=== PATIENT | female | born 1965 | race Caucasian/White ===

== ENCOUNTER 2017-09-15 11:38 | Emergency (ER) | payer MEDICAID ==
[~2017-09-15] VITALS: Ht 172.7 cm; Wt 68.9 kg
[2017-09-15] MEDS ORDERED: UNOBMED (11:52)
[2017-09-15 11:55] VITALS: BP 103/56
--- NOTE | 2017-09-15 12:27 | Emergency Room Report ---
History of Present Illness General Chief Complaint: Dizziness Source: Patient (Krishan Danielle MD) Present Illness HPI Patient is a 52-year-old female who presented after increased dizziness. The patient gradual onset of symptoms over the past few days. Patient reports having history of alcohol abuse and states been drinking heavily for several weeks and stop drinking until this morning. The patient reports feeling the lightheaded. She denies any hematemesis or bloody stools. Patient reports having prior history of COPD as well as hepatitis C. The patient reports having one alcoholic drink this morning. (Krishan Danielle MD) Allergies: Coded Allergies: CODEINE (Verified Allergy, Unknown, 09/15/17) Patient History Now: No Reviewed Nursing Documentation: PMH: Agreed; PSxH: Agreed (Krishan Danielle MD) Nursing Documentation-PMH Hx COPD: Yes History Of Psychiatric Problem: Yes (Krishan Danielle MD) Review of Systems All Other Systems: negative except mentioned in HPI (Krishan Danielle MD) Physical Exam Vital Signs Date Time Temp Pulse Resp B/P (MAP) Pulse Ox O2 Delivery O2 Flow Rate FiO2 09/15/17 11:47 98.3 109 16 94/67 93 Room Air 98.2 Sp02 EP Interpretation: reviewed, normal General Appearance: normal inspection, well appearing, no apparent distress, alert, GCS 15 Head: atraumatic ENT: normal ENT inspection, hearing grossly normal, normal voice Neck: normal inspection, full range of motion, supple, no bony tend Respiratory: normal inspection, normal breath sounds, no respiratory distress, no retraction Cardiovascular #1: regular rate, rhythm, no edema Gastrointestinal: normal inspection, normal bowel sounds, non tender, soft, no guarding, no hernia Genitourinary: no CVA tenderness Musculoskeletal: normal inspection, back normal, normal range of motion Neurologic: normal inspection, alert, oriented x3, responsive, machine set up III-XII nml as tested, motor strength/tone normal, speech normal Psychiatric: normal inspection, judgement/insight normal, mood/affect normal Skin: normal inspection, normal color, no rash (Krishan Danielle MD) Medical Decision Making Diagnostic Impression: Primary Impression: Dizziness Additional Impressions: Hypokalemia Anemia ER Course Patient presented for dizziness. Differential diagnosis included but not limited to urinary tract infection, anemia, arrhythmia, abdominal aortic aneurysm, CVA, subarachnoid hemorrhage, benign positional vertigo.Because of complexity of patient's case laboratory testing and imaging studies were ordered.The patient started on IV fluids. (Krishan Danielle MD) ER Course Please for to the initial note for the history exam and presentation Patient's blood work reveals signs of anemia Potassium level was also low this was replaced Patient was provided with further hydration Going to discuss the findings in the follow-up with the patient Patient is verbally abusive After several minutes of attempting to talk to the patient, she continues to be verbally aggressive, unfortunately I was not able to have a full and final conversation with the patient Patient appeared to be complaining of ongoing dizziness for over the past several months Thus far given the blood work patient is stable for discharge, she was provided with multivitamin and also Michelle catheter with consideration of Wernikies disease At this time patient ambulate to the restroom without any deficit or focal weakness Consideration for CT imaging is made however as noted previously the patient was not cooperative with my exam or history and disposition for close outpatient follow-up Labs Test 09/15/17 13:25 09/15/17 13:45 Urine Color Yellow Urine Appearance Slightly cloudy Urine pH 5 (4.5-8.0) Urine Specific [place] 1.015 (1.005-1.035) Urine Protein 1+ (NEGATIVE) Urine Glucose (UA) Negative (NEGATIVE) Urine Ketones Negative (NEGATIVE) Urine Occult Blood 1+ (NEGATIVE) Urine Nitrite Positive (NEGATIVE) Urine Bilirubin Negative (NEGATIVE) Urine Urobilinogen 1 MG/DL (0.0-1.0) Urine Leukocyte Esterase 2+ (NEGATIVE) Urine RBC 2-4 /HPF (0 - 2) Urine WBC 15-20 /HPF (0 - 2) Urine Squamous Epithelial Cells Few /LPF (NONE/OCC) Urine Bacteria Moderate /HPF (NONE) Urine Opiates Screen Negative (NEGATIVE) Urine Barbiturates Screen Negative (NEGATIVE) Phencyclidine (PCP) Screen Negative (NEGATIVE) Urine Amphetamines Screen Negative (NEGATIVE) Urine Benzodiazepines Screen Negative (NEGATIVE) Urine Cocaine Screen Negative (NEGATIVE) Urine Marijuana (THC) Screen Negative (NEGATIVE) White Blood Count 8.9 K/UL (4.8-10.8) Red Blood Count 2.76 M/UL (4.20-5.40) Hemoglobin 9.4 G/DL (12.0-16.0) Hematocrit 27.5 % (37.0-47.0) Mean Corpuscular Volume 100 FL (80-99) Mean Corpuscular Hemoglobin 33.9 PG (27.0-31.0) Mean Corpuscular Hemoglobin Concent 34.1 G/DL (32.0-36.0) Red Cell Distribution Width 15.3 % (11.6-14.8) Platelet Count 429 K/UL (150-450) Mean Platelet Volume 5.7 FL (6.5-10.1) Neutrophils (%) (Auto) 50.1 % (45.0-75.0) Lymphocytes (%) (Auto) 41.2 % (20.0-45.0) Monocytes (%) (Auto) 6.8 % (1.0-10.0) Eosinophils (%) (Auto) 0.4 % (0.0-3.0) Basophils (%) (Auto) 1.5 % (0.0-2.0) Prothrombin Time 10.1 SEC (9.30-11.50) Prothromb Time International Ratio 1.0 (0.9-1.1) Activated Partial Thromboplast Time 25 SEC (23-33) Sodium Level 143 MMOL/L (136-145) Potassium Level 2.7 MMOL/L (3.5-5.1) Chloride Level 104 MMOL/L (98-107) Carbon Dioxide Level 28 MMOL/L (21-32) Anion Gap 10 mmol/L (5-15) Blood Urea Nitrogen 7 mg/dL (7-18) Creatinine 0.7 MG/DL (0.55-1.30) Estimat Glomerular Filtration Rate > 60 mL/min (>60) Glucose Level 106 MG/DL (74-106) Calcium Level 9.3 MG/DL (8.5-10.1) Total Bilirubin 0.2 MG/DL (0.2-1.0) Aspartate Amino Transf (AST/SGOT) 66 U/L (15-37) Alanine Aminotransferase (ALT/SGPT) 36 U/L (12-78) Alkaline Phosphatase 119 U/L (46-116) Troponin I 0.000 ng/mL (0.000-0.056) Total Protein 6.8 G/DL (6.4-8.2) Albumin 3.3 G/DL (3.4-5.0) Globulin 3.5 g/dL Albumin/Globulin Ratio 0.9 (1.0-2.7) Lipase 268 U/L (73-393) Thyroid Stimulating Hormone (TSH) 0.852 uiU/mL (0.358-3.740) Serum Alcohol < 3 mg/dL (Arslan Peacock DO) EKG Diagnostic Results Rate: normal Rhythm: NSR ST Segments: no acute changes (Arslan Peacock DO) Rhythm Strip Diag. Results EP Interpretation: yes Rate: 77 Rhythm: NSR, no PVC's, no ectopy (Arslan Peacock DO) Last Vital Signs Date Time Temp Pulse Resp B/P (MAP) Pulse Ox O2 Delivery O2 Flow Rate FiO2 09/15/17 11:55 95 18 103/56 97 Room Air 09/15/17 11:47 98.3 98.2 (Krishan Danielle MD) Status: improved (Arslan Peacock DO) Disposition: HOME, SELF-CARE - With refusal of further evaluation Condition: Improved Referrals: NON PHYSICIAN (PCP) Additional Instructions: Please follow-up with your primary physician in the next 2-3 days return sooner with any complaints or concerns, Krishan Danielle MD Sep 15, 2017 12:27 Arslan Peacock DO Sep 15, 2017 17:24
[2017-09-15] MEDS ORDERED: LR 1000ml 1,000 ML IV SCH (12:30)
[2017-09-15 13:40] LABS: APPEARANCE,URINE SLIGHTLY CLOUDY; BILIRUBIN, URINE NEGATIVE (NEGATIVE); GLUCOSE, URINE (UA) NEGATIVE (NEGATIVE); KETONES,URINE NEGATIVE (NEGATIVE); LEUKOCYTE ESTERASE ,URINE 2+ (NEGATIVE); NITRITE,URINE POSITIVE (NEGATIVE); PH,URINE 5 (4.5-8.0); PROTEIN,URINE 1+ (NEGATIVE); UROBILINOGEN,URINE 1 MG/DL (0.0-1.0)
[2017-09-15 13:51] LABS: COLOR,URINE YELLOW
[2017-09-15 13:53] LABS: BASOPHILS % (AUTO) 1.5 % (0.0-2.0); EOSINOPHILS % (AUTO) 0.4 % (0.0-3.0); HEMATOCRIT 27.5 % (37.0-47.0); HEMOGLOBIN 9.4 G/DL (12.0-16.0); LYMPHOCYTES % (AUTO) 41.2 % (20.0-45.0); MEAN CORPUSCULAR VOLUME 100 FL (80-99); MONOCYTES % (AUTO) 6.8 % (1.0-10.0); NEUTROPHILS % (AUTO) 50.1 % (45.0-75.0); PLATELET COUNT 429 K/UL (150-450); RED BLOOD COUNT 2.76 M/UL (4.20-5.40); RED CELL DISTRIBUTION WIDTH 15.3 % (11.6-14.8); WHITE BLOOD COUNT 8.9 K/UL (4.8-10.8)
[2017-09-15 14:17] LABS: ALANINE AMINOTRANSFERASE 36 U/L (12-78); ALBUMIN 3.3 G/DL (3.4-5.0); ALBUMIN/GLOBULIN RATIO 0.9 (1.0-2.7); ALKALINE PHOSPHATASE 119 U/L (46-116); ANION GAP 10 mmol/L (5-15); ASPARTATE AMINO TRANSFERASE 66 U/L (15-37); BILIRUBIN,TOTAL 0.2 MG/DL (0.2-1.0); BLOOD UREA NITROGEN 7 mg/dL (7-18); CALCIUM 9.3 MG/DL (8.5-10.1); CARBON DIOXIDE 28 MMOL/L (21-32); CHLORIDE 104 MMOL/L (98-107); CREATININE 0.7 MG/DL (0.55-1.30); SODIUM 143 MMOL/L (136-145)
[2017-09-15 14:18] LABS: POTASSIUM 2.7 MMOL/L (3.5-5.1)
[2017-09-15] MEDS ORDERED: cefTRIAXone 1 GM in NS 55 ML IVPB ONE (14:30)
[2017-09-15 15:25] VITALS: BP 104/62
[2017-09-15 17:06] VITALS: BP 104/62
--- NOTE | 2017-09-16 14:56 | Cardiology Report ---
APPROVED REPORT EKG Measurement Heart [id number] Normal sinus rhythm Normal ECG
== END 2017-09-15 17:07 | disposition home or self-care (01) ==
LOC: EMR 12:20
DX: R42 Dizziness and giddiness (principal); E87.6 Hypokalemia; D64.9 Anemia, unspecified; J44.9 Chronic obstructive pulmonary disease, unspecified
CPT/HCPCS: 36415; 80053; 80307; 80329; 81001; 83690; 84443; 84484; 85025; 85610; 85730; 87086; 87181; 93005; 96361; 96365; 99284; J0696; J8499

== ENCOUNTER 2018-02-26 11:11 | Emergency (ER) | payer MEDICAID ==
[~2018-02-26] VITALS: Ht 154.9 cm; Wt 63.5 kg
[~2018-02-26 11:11] MED LIST: UNOBMED
[2018-02-26 11:14] VITALS: BP 120/80
--- NOTE | 2018-02-26 14:20 | Emergency Room Report ---
History of Present Illness General Chief Complaint: Alcohol Intoxication Source: Patient, EMS Present Illness HPI Patient presents by paramedics for reports of alcohol abuse and intoxication I am trying to obtain the order detailer run to obtain further history of who contacted paramedics and how the patient was brought to the emergency room here the patient shows signs of alcohol intoxication Belligerent yelling at the staff cursing at the staff Denies any chest pain denies any vomiting or diarrhea patient is not aware of why she was brought to the hospital Allergies: Coded Allergies: CODEINE (Verified Allergy, Unknown, 09/15/17) Patient History Limited by: medical condition Past Medical History: see triage record Pertinent Family History: unable to obtain Reviewed Nursing Documentation: PMH: Agreed; PSxH: Agreed Nursing Documentation-PMH Hx COPD: Yes Review of Systems All Other Systems: limited - Other than the ones mentioned in the history of present illness all others are reviewed however they do stay limited due to the patient's mental status Physical Exam Vital Signs Date Time Temp Pulse Resp B/P (MAP) Pulse Ox O2 Delivery O2 Flow Rate FiO2 02/26/18 11:06 98.2 88 120/80 98 02/26/18 11:14 22 Sp02 EP Interpretation: reviewed, normal General Appearance: no apparent distress Head: normocephalic, atraumatic Eyes: bilateral eye PERRL, bilateral eye EOMI ENT: normal pharynx, no angioedema Neck: supple Respiratory: lungs clear, normal breath sounds, no retraction, no accessory muscle use Cardiovascular #1: regular rate, rhythm Gastrointestinal: non tender, soft Musculoskeletal: normal inspection Neurologic: alert, responsive Psychiatric: other - Appears agitated and screaming at the staff Skin: normal color, no rash Lymphatic: no adenopathy Medical Decision Making Diagnostic Impression: Primary Impression: Acute alcoholic intoxication ER Course Upon arrival patient also admits to heavy alcohol intake Denies any vomiting or diarrhea denies any homicidal or suicidal thoughts Patient is allowed to rest there is no Findings with focal deficit and further imaging was not obtained patient will require repeat evaluation Discussion further after sobering Last Vital Signs Date Time Temp Pulse Resp B/P (MAP) Pulse Ox O2 Delivery O2 Flow Rate FiO2 02/26/18 11:14 98.2 88 22 120/80 98 Status: improved Condition: Stable Signed Out To: Oncoming physician Referrals: NOT CHOSEN IPA/,REFERRING (PCP) Arslan Peacock DO Feb 26, 2018 14:20
[2018-02-26 15:58] VITALS: BP 123/76
[2018-02-26 16:15] VITALS: BP 123/76
== END 2018-02-26 16:24 | disposition home or self-care (01) ==
LOC: EDBD 11:11 → EMR 12:00
DX: F10.129 Alcohol abuse with intoxication, unspecified (principal); J44.9 Chronic obstructive pulmonary disease, unspecified; Z88.5 Allergy status to narcotic agent
CPT/HCPCS: 99282

== ENCOUNTER 2019-02-22 09:37 | Inpatient (IN) | payer MEDICAID ==
[~2019-02-22] VITALS: Ht 172.7 cm; Wt 64.4 kg
--- NOTE | 2019-02-22 09:38 | NUR ---
ED Nurse Note: PT WAS BROUGHT IN BY AMBULANCE FROM HOME DUE TO RESPIRATORY DISTRESS AND LFU LIKE SYMPTOMS. ALBUTEROL 5MG WAS GIVEN BY EMS AND PT DID NOT IMPROVE. CPAP THEN PLACED BY EMS. AAO X4, FOLLOWS COMMANDS WITH SOB AT REST AND DIMINISHED LUNG SOUNDS UPON INSPIRATION. NOTED INCREASED BREATHING EFFORT AND UNABLE TO LAY DOWN.
--- NOTE | 2019-02-22 09:40 | NUR ---
ED Nurse Note: RT STACY AT THE BED SIDE AND BIPAP ORDERED BY DR SHAFER.
[2019-02-22] MEDS ORDERED: Ipratropium 0.02% Inh Soln 2.5ml UD ONE ×2 (09:41→09:42)
[2019-02-22] MEDS ORDERED: Albuterol ud Inhalation ONE ×2 (09:41→09:42)
[2019-02-22 09:42] VITALS: BP 136/73
[2019-02-22] MEDS ORDERED: IBUPROFEN400 MG ORAL (09:44)
[2019-02-22] MEDS ORDERED: SERTRALINE HCL25 MG ORAL (09:44)
[2019-02-22] MEDS ORDERED: GABAPENTIN100 MG ORAL (09:45)
[2019-02-22] MEDS: Ipratropium 0.02% Inh Soln 2.5ml UD HHN SCH ×3 (09:53→09:55)
[2019-02-22] MEDS: Albuterol ud Inhalation HHN SCH ×2 (09:53→09:54)
[2019-02-22] MEDS ORDERED: Solu-MEDROL 125mg Inj IVP ONE (10:00)
[2019-02-22 10:19] LABS: HEMATOCRIT 34.2 % (37.0-47.0); HEMOGLOBIN 11.5 G/DL (12.0-16.0); MEAN CORPUSCULAR VOLUME 108 FL (80-99); PLATELET COUNT 74 K/UL (150-450); RED BLOOD COUNT 3.17 M/UL (4.20-5.40); RED CELL DISTRIBUTION WIDTH 13.6 % (11.6-14.8); WHITE BLOOD COUNT 11.5 K/UL (4.8-10.8)
[2019-02-22 10:29] LABS: ANION GAP 22 mmol/L (5-15); BLOOD UREA NITROGEN 13 mg/dL (7-18); CALCIUM 8.5 MG/DL (8.5-10.1); CARBON DIOXIDE 18 MMOL/L (21-32); CHLORIDE 97 MMOL/L (98-107); CREATININE 0.6 MG/DL (0.55-1.30); POTASSIUM 3.4 MMOL/L (3.5-5.1); SODIUM 137 MMOL/L (136-145)
[2019-02-22 10:41] LABS: ALANINE AMINOTRANSFERASE 27 U/L (12-78); ALBUMIN 3.2 G/DL (3.4-5.0); ALBUMIN/GLOBULIN RATIO 0.7 (1.0-2.7); ALKALINE PHOSPHATASE 91 U/L (46-116); ASPARTATE AMINO TRANSFERASE 48 U/L (15-37); BILIRUBIN,TOTAL 0.8 MG/DL (0.2-1.0)
--- NOTE | 2019-02-22 11:01 | NUR ---
ED Nurse Note: RT KUMAR AT THE BED SIDE FOR ABG DRAW.
--- NOTE | 2019-02-22 11:02 | NUR ---
ED Nurse Note: DR SHAFER NOTIFIED OF BS 62.
[2019-02-22 11:51] VITALS: BP 144/87
--- NOTE | 2019-02-22 11:56 | NUR ---
ED Nurse Note: COLLECTED URINE THEN SENT.
[2019-02-22 12:03] LABS: APPEARANCE,URINE CLEAR; BILIRUBIN, URINE NEGATIVE (NEGATIVE); COLOR,URINE PALE YELLOW; GLUCOSE, URINE (UA) NEGATIVE (NEGATIVE); KETONES,URINE 4+ (NEGATIVE); LEUKOCYTE ESTERASE ,URINE 3+ (NEGATIVE); NITRITE,URINE NEGATIVE (NEGATIVE); PH,URINE 5 (4.5-8.0); PROTEIN,URINE 2+ (NEGATIVE); UROBILINOGEN,URINE NORMAL MG/DL (0.0-1.0)
--- NOTE | 2019-02-22 12:06 | Diagnostic Imaging Report ---
Indication: Cough Technique: One view of the chest Comparison: none Findings: Lungs and pleural spaces are clear. Heart size is normal. Impression: No acute process
--- NOTE | 2019-02-22 12:15 | NUR ---
ED Nurse Note: DR SHAFER ORDERED TO DISCONTINUE BIPAP AND ASSESS IF PT CAN TOLERATE NASAL CANNULA.
--- NOTE | 2019-02-22 12:28 | Emergency Room Report ---
History of Present Illness General Chief Complaint: Dyspnea/Respdistress Source: Patient Present Illness HPI Patient presents to the emergency department today with acute onset respiratory distress. Patient has a history of COPD. Patient states that she developed flulike symptoms for last few days and then today developed acute onset of cough congestion shortness of breath. EMS was contacted and patient was brought here for further evaluation. No other complaints are noted per symptoms noted to be severe. No other modifying factors. No other associated signs and symptoms. No other complaints were noted. Allergies: Coded Allergies: CODEINE (Verified Allergy, Unknown, 09/15/17) Patient History Past Medical History: COPD, other - Substance abuse Social History: Reports: smoking; Denies: alcohol use, drug use Last Menstrual Period: na Reviewed Nursing Documentation: PMH: Agreed; PSxH: Agreed Nursing Documentation-PMH Past Medical History: No History, Except For Hx COPD: Yes History Of Psychiatric Problem: Yes - substance abuse Review of Systems All Other Systems: negative except mentioned in HPI Physical Exam Vital Signs Date Time Temp Pulse Resp B/P (MAP) Pulse Ox O2 Delivery O2 Flow Rate FiO2 02/22/19 09:28 99.0 128 24 139/66 (90) 97 Bi-pap 02/22/19 09:37 40 40 Sp02 EP Interpretation: reviewed, normal General Appearance: alert, severe distress Head: atraumatic Eyes: bilateral eye normal inspection ENT: normal ENT inspection, hearing grossly normal, normal voice Neck: normal inspection, full range of motion, supple, no bony tend Respiratory: respiratory distress, decreased breath sounds, accessory muscle use, wheezing, expiration, inspiration Cardiovascular #1: no edema, tachycardia Gastrointestinal: normal inspection, normal bowel sounds, non tender, soft, no guarding, no hernia Genitourinary: no CVA tenderness Musculoskeletal: normal inspection, back normal, normal range of motion Neurologic: alert, responsive, speech normal, normal inspection Psychiatric: normal inspection, judgement/insight normal, anxious Skin: no rash Procedures Critical Care Time Critical Care Time Patient had a critical medical condition which untreated could potentially result in life or limb threatening injury. Total critical care time excluding procedures was approximately 45 minutes. Medical Decision Making Diagnostic Impression: Primary Impression: Respiratory distress Additional Impressions: Hypokalemia UTI (urinary tract infection) ER Course Patient presents emergency department today complaining of shortness of breath. Differential diagnoses include acute pneumonia, CHF, acute coronary syndrome, pneumothorax, asthma, COPD flare, just to name a few. Given the severity of the patient's presentation I felt this is a highly complex patient. This patient required extensive workup. Because patient presented in severe respiratory distress this is to be critical patient who required my full and complete attention. BiPAP was initiated. Patient was given albuterol Atrovent x3 in line. Patient was given Solu- Medrol. Patient was reevaluated to continue be short of breath. Therefore patient was started on magnesium. Patient has evidence UTI and given COPD will start patient on Rocephin as well. Blood cultures was obtained. Because of severity patient presentation was felt the patient was unstable for transfer. This was discussed with [facility] who approved the admission. Case discussed with Dr. Arslan Salinas. Patient will be admitted to our stepdown unit here for further evaluation. Labs Test 02/22/19 10:00 02/22/19 10:50 02/22/19 11:50 White Blood Count 11.5 K/UL (4.8-10.8) Red Blood Count 3.17 M/UL (4.20-5.40) Hemoglobin 11.5 G/DL (12.0-16.0) Hematocrit 34.2 % (37.0-47.0) Mean Corpuscular Volume 108 FL (80-99) Mean Corpuscular Hemoglobin 36.2 PG (27.0-31.0) Mean Corpuscular Hemoglobin Concent 33.6 G/DL (32.0-36.0) Red Cell Distribution Width 13.6 % (11.6-14.8) Platelet Count 74 K/UL (150-450) Mean Platelet Volume 5.4 FL (6.5-10.1) Neutrophils (%) (Auto) % (45.0-75.0) Lymphocytes (%) (Auto) % (20.0-45.0) Monocytes (%) (Auto) % (1.0-10.0) Eosinophils (%) (Auto) % (0.0-3.0) Basophils (%) (Auto) % (0.0-2.0) Differential Total Cells Counted 100 Neutrophils % (Manual) 83 % (45-75) Lymphocytes % (Manual) 5 % (20-45) Monocytes % (Manual) 11 % (1-10) Eosinophils % (Manual) 1 % (0-3) Basophils % (Manual) 0 % (0-2) Band Neutrophils 0 % (0-8) Platelet Estimate Decreased Platelet Morphology Normal Macrocytosis 1+ Sodium Level 137 MMOL/L (136-145) Potassium Level 3.4 MMOL/L (3.5-5.1) Chloride Level 97 MMOL/L (98-107) Carbon Dioxide Level 18 MMOL/L (21-32) Anion Gap 22 mmol/L (5-15) Blood Urea Nitrogen 13 mg/dL (7-18) Creatinine 0.6 MG/DL (0.55-1.30) Estimat Glomerular Filtration Rate > 60 mL/min (>60) Glucose Level 62 MG/DL (74-106) Calcium Level 8.5 MG/DL (8.5-10.1) Total Bilirubin 0.8 MG/DL (0.2-1.0) Aspartate Amino Transf (AST/SGOT) 48 U/L (15-37) Alanine Aminotransferase (ALT/SGPT) 27 U/L (12-78) Alkaline Phosphatase 91 U/L (46-116) Troponin I 0.000 ng/mL (0.000-0.056) Pro-B-Type Natriuretic Peptide 1247 pg/mL (0-125) Total Protein 7.5 G/DL (6.4-8.2) Albumin 3.2 G/DL (3.4-5.0) Globulin 4.3 g/dL Albumin/Globulin Ratio 0.7 (1.0-2.7) Arterial Blood pH 7.372 (7.350-7.450) Arterial Blood Partial Pressure CO2 30.0 mmHg (35.0-45.0) Arterial Blood Partial Pressure O2 187.6 mmHg (75.0-100.0) Arterial Blood HCO3 17.0 mmol/L (22.0-26.0) Arterial Blood Oxygen Saturation 99.1 % (95-100) Arterial Blood Base Excess -7.0 (-2-2) Akshat Test Positive Urine Color Pale yellow Urine Appearance Clear Urine pH 5 (4.5-8.0) Urine Specific [place] 1.015 (1.005-1.035) Urine Protein 2+ (NEGATIVE) Urine Glucose (UA) Negative (NEGATIVE) Urine Ketones 4+ (NEGATIVE) Urine Blood 5+ (NEGATIVE) Urine Nitrite Negative (NEGATIVE) Urine Bilirubin Negative (NEGATIVE) Urine Urobilinogen Normal MG/DL (0.0-1.0) Urine Leukocyte Esterase 3+ (NEGATIVE) Urine RBC 10-15 /HPF (0 - 2) Urine WBC 10-15 /HPF (0 - 2) Urine Squamous Epithelial Cells Few /LPF (NONE/OCC) Urine Bacteria Few /HPF (NONE) EKG Diagnostic Results Rate: tachycardiac Rhythm: NSR ST Segments: no acute changes Rhythm Strip Diag. Results EP Interpretation: yes Rate: 133 Rhythm: no PVC's, no ectopy, other - Sinus tachycardia Chest X-Ray Diagnostic Results Chest X-Ray Diagnostic Results : Chest X-Ray Ordered: Yes # of Views/Limited/Complete: 1 View Indication: Shortness of Breath EP Interpretation: Yes Interpretation: no consolidation, no effusion, no pneumothorax, no acute cardiopulmonary disease Impression: No acute disease Electronically Signed by: Electronically signed by Donnell Lay MD Last Vital Signs Date Time Temp Pulse Resp B/P (MAP) Pulse Ox O2 Delivery O2 Flow Rate FiO2 02/22/19 11:51 99.0 106 20 144/87 100 Bi-pap 40 Status: improved Disposition: ADMITTED INPATIENT Condition: Serious Referrals: NON PHYSICIAN (PCP) Donnell Lay MD Feb 22, 2019 12:28
[2019-02-22] MEDS ORDERED: cefTRIAXone 1 GM in NS 55 ML IVPB ONE (12:30)
[2019-02-22 12:58] VITALS: BP 145/93
--- NOTE | 2019-02-22 12:59 | NUR ---
ED Nurse Note: REPORT GIVEN TO SOLANGE HERNANDES OF [facility].
--- NOTE | 2019-02-22 14:03 | NUR ---
ED Nurse Note: PT TRANSFERRED TO [facility] WITH ALL HER BELONGINGS WITH HER. PT ON PORTABLE CARDIAC MONITORWITH OXYGEN AR 4LPM AND STABLE.
[2019-02-22 15:00] VITALS: BP 161/90
--- NOTE | 2019-02-22 15:00 | NUR ---
NURSE NOTES: received pt from ER with DX respiratory distress, awake, alert, oriented, vital signs stable, o2 4l via nasal canula, tolerate well, skin warm and dry to touch, intact, ambulatory, SR/ST on monitor, bed in low position, call light within reach.
[2019-02-22] MEDS: Albuterol/Ipratropium 3ml neb HHN SCH ×3 (15:45→23:00)
[2019-02-22 16:00] VITALS: BP 132/83
--- NOTE | 2019-02-22 16:22 | Diagnostic Imaging Report ---
Indication: Abnormal liver function tests. Leukocytosis, history of hepatitis C Technique: Seo-scale and duplex images of the upper abdomen were obtained Comparison: none Findings: Gallbladder is unremarkable, without stones, wall thickening, nor pericholecystic fluid. Sonographic Landin's sign is negative. Common bile duct measures 4 mm in diameter. No intrahepatic biliary ductal dilatation. Liver demonstrates increased echogenicity. It is enlarged. No focal abnormality. No surface nodularity Portal vein and hepatic veins are patent. Pancreas is unremarkable. Spleen is unremarkable. Left kidney measures 11.2 cm in length. Right kidney measures 12.1 cm length. Both kidneys demonstrate normal echogenicity. Centimeters mild fullness of the renal collecting systems but no carlos eduardo hydronephrosis. No focal abnormality . Non-aneurysmal abdominal aorta . Bladder is unremarkable Impression: Liver demonstrates diffusely increased echogenicity, consistent with diffuse hepatocellular disease, most likely fatty change. Hepatomegaly Negative gallstones or dilated bile ducts
[2019-02-22 16:25] LABS: INR 0.9 (0.9-1.1)
[2019-02-22 17:03] LABS: % IRON SATURATION 12 % (15-50); IRON 29 ug/dL (50-175); TOTAL IRON BINDING CAPACITY 241 ug/dL (250-450)
[2019-02-22 17:16] LABS: FERRITIN 279 NG/ML (8-388)
--- NOTE | 2019-02-22 18:30 | NUR ---
NURSE NOTES: spoke with dr. Mansfield, he coming to see pt.
--- NOTE | 2019-02-22 19:28 | NUR ---
HAND-OFF: Report given to MADISON HERNANDES.
--- NOTE | 2019-02-22 19:35 | NUR ---
NURSE NOTES: Report received from CECILIO Butt. Observed pt lying in the bed, complains of headache 8/10, aching. PRN pain will be given. ST on night monitor. O2 2L, no sob noted. No acute distress noted at this time. IV L AC 22G, intact. Bed in the lowest position. Side rails up x3. Will continue to monitor.
[2019-02-22 20:00] VITALS: BP 145/76
[2019-02-22] MEDS: Doxycycline Monohydrate 100mg ORAL SCH (20:10)
[2019-02-22] MEDS: Zolpidem 5mg tab ORAL PRN (20:11)
--- NOTE | 2019-02-22 21:47 | Pulmonology Progress Note ---
Assessment/Plan Assessment/Plan Pulmonary Consultation Patient is a 54 year old woman with a past history of Chronic Obstructive Pulmonary Disease, Hepatitis B. Patient had flulike symptoms for last few days and then today developed acute onset of cough congestion shortness of breath. Maintenance treatment for COPD PRN Albuterol Allergies: CODEINE Past Medical History: Chronic Obstructive Pulmonary Disease, Hepatitis B, Substance abuse Social History: Reports: smoking; Denies: alcohol use, drug use All Other Systems: negative except mentioned in HPI Physical Exam Vital Signs Noted Date Time Temp Pulse Resp B/P (MAP) Pulse Ox O2 Delivery O2 Flow Rate FiO2 02/22/19 09:28 99.0 128 24 139/66 (90) 97 Bi-pap 02/22/19 09:37 40 40 General Appearance: alert, comfortable on BiPAP, anxious Head: atraumatic Eyes: bilateral eye normal inspection ENT: normal ENT inspection, moist mm Neck: normal inspection, full range of motion, no LN Respiratory: respiratory distress, decreased breath sounds,, mild wheezing Cardiovascular: no edema, tachycardia, HS1, HS2 normal Gastrointestinal: normal inspection, normal bowel sounds, non tender, soft, no guarding, no hernia Genitourinary: no CVA tenderness Musculoskeletal: normal inspection, back normal, normal range of motion Neurologic: alert, responsive, speech normal, normal inspection Skin: no rash Impression: Chronic Obstructive Pulmonary Disease exacerbation Bronchitis Hepatitis B Respiratory distress Hypokalemia Possible urinary tract infection Thrombocytopenia Plan - IV Solumedrol - HHN - O2 PRN - BiPAP PRN - PO Doxycycline - May need diuresis given increased NPA - PPX - SCD - [employer]ARDRO[employer] COORDINATOR Medications Labs Test 02/22/19 10:00 02/22/19 10:50 02/22/19 11:50 White Blood Count 11.5 K/UL (4.8-10.8) Red Blood Count 3.17 M/UL (4.20-5.40) Hemoglobin 11.5 G/DL (12.0-16.0) Hematocrit 34.2 % (37.0-47.0) Mean Corpuscular Volume 108 FL (80-99) Mean Corpuscular Hemoglobin 36.2 PG (27.0-31.0) Mean Corpuscular Hemoglobin Concent 33.6 G/DL (32.0-36.0) Red Cell Distribution Width 13.6 % (11.6-14.8) Platelet Count 74 K/UL (150-450) Mean Platelet Volume 5.4 FL (6.5-10.1) Neutrophils (%) (Auto) % (45.0-75.0) Lymphocytes (%) (Auto) % (20.0-45.0) Monocytes (%) (Auto) % (1.0-10.0) Eosinophils (%) (Auto) % (0.0-3.0) Basophils (%) (Auto) % (0.0-2.0) Differential Total Cells Counted 100 Neutrophils % (Manual) 83 % (45-75) Lymphocytes % (Manual) 5 % (20-45) Monocytes % (Manual) 11 % (1-10) Eosinophils % (Manual) 1 % (0-3) Basophils % (Manual) 0 % (0-2) Band Neutrophils 0 % (0-8) Platelet Estimate Decreased Platelet Morphology Normal Macrocytosis 1+ Sodium Level 137 MMOL/L (136-145) Potassium Level 3.4 MMOL/L (3.5-5.1) Chloride Level 97 MMOL/L (98-107) Carbon Dioxide Level 18 MMOL/L (21-32) Anion Gap 22 mmol/L (5-15) Blood Urea Nitrogen 13 mg/dL (7-18) Creatinine 0.6 MG/DL (0.55-1.30) Estimat Glomerular Filtration Rate > 60 mL/min (>60) Glucose Level 62 MG/DL (74-106) Calcium Level 8.5 MG/DL (8.5-10.1) Total Bilirubin 0.8 MG/DL (0.2-1.0) Aspartate Amino Transf (AST/SGOT) 48 U/L (15-37) Alanine Aminotransferase (ALT/SGPT) 27 U/L (12-78) Alkaline Phosphatase 91 U/L (46-116) Troponin I 0.000 ng/mL (0.000-0.056) Pro-B-Type Natriuretic Peptide 1247 pg/mL (0-125) Total Protein 7.5 G/DL (6.4-8.2) Albumin 3.2 G/DL (3.4-5.0) Globulin 4.3 g/dL Albumin/Globulin Ratio 0.7 (1.0-2.7) Arterial Blood pH 7.372 (7.350-7.450) Arterial Blood Partial Pressure CO2 30.0 mmHg (35.0-45.0) Arterial Blood Partial Pressure O2 187.6 mmHg (75.0-100.0) Arterial Blood HCO3 17.0 mmol/L (22.0-26.0) Arterial Blood Oxygen Saturation 99.1 % (95-100) Arterial Blood Base Excess -7.0 (-2-2) Akshat Test Positive Urine Color Pale yellow Urine Appearance Clear Urine pH 5 (4.5-8.0) Urine Specific [place] 1.015 (1.005-1.035) Urine Protein 2+ (NEGATIVE) Urine Glucose (UA) Negative (NEGATIVE) Urine Ketones 4+ (NEGATIVE) Urine Blood 5+ (NEGATIVE) Urine Nitrite Negative (NEGATIVE) Urine Bilirubin Negative (NEGATIVE) Urine Urobilinogen Normal MG/DL (0.0-1.0) Urine Leukocyte Esterase 3+ (NEGATIVE) Urine RBC 10-15 /HPF (0 - 2) Urine WBC 10-15 /HPF (0 - 2) Urine Squamous Epithelial Cells Few /LPF (NONE/OCC) Urine Bacteria Few /HPF (NONE) EKG Diagnostic Results Rate: tachycardiac Rhythm: NSR ST Segments: no acute changes Chest X-Ray Ordered: no consolidation, no effusion, no pneumothorax, no acute cardiopulmonary disease Subjective ROS Limited/Unobtainable: No Allergies: Coded Allergies: CODEINE (Verified Allergy, Unknown, 09/15/17) Objective Last 24 Hour Vital Signs Date Time Temp Pulse Resp B/P (MAP) Pulse Ox O2 Delivery O2 Flow Rate FiO2 02/22/19 20:00 96 Nasal Cannula 2.0 28 02/22/19 19:00 2.0 28 02/22/19 16:38 98.1 02/22/19 16:00 97.9 111 16 132/83 (99) 98 02/22/19 16:00 96 02/22/19 16:00 2.0 02/22/19 15:44 95 Nasal Cannula 2.0 28 02/22/19 15:42 81 20 98 Nasal Cannula 2.0 28 79 20 95 02/22/19 15:33 Nasal Cannula 2.0 02/22/19 15:00 98.1 101 22 161/90 (113) 98 02/22/19 14:03 98.8 101 20 138/73 100 Nasal Cannula 4.0 02/22/19 12:58 99.0 110 18 145/93 100 Nasal Cannula 4.0 02/22/19 11:51 99.0 106 20 144/87 100 Bi-pap 40 02/22/19 10:41 120 17 100 Facial 40 02/22/19 10:38 120 17 100 02/22/19 09:42 99.0 133 24 136/73 97 Bi-pap 40 02/22/19 09:40 40 02/22/19 09:38 133 24 Bi-pap 02/22/19 09:37 126 29 100 Facial 40 Bi-Pap 40 02/22/19 09:28 99.0 128 24 139/66 (90) 97 Bi-pap Microbiology Date/Time Source Procedure Growth Status 02/22/19 10:00 Nasal Nares - Final Complete 02/22/19 10:00 Nasal Nares - Final Complete Laboratory Tests 02/22/19 10:00: White Blood Count 11.5H, Red Blood Count 3.17L, Hemoglobin 11.5L, Hematocrit 34.2L, Mean Corpuscular Volume 108H, Mean Corpuscular Hemoglobin 36.2H, Mean Corpuscular Hemoglobin Concent 33.6, Red Cell Distribution Width 13.6, Platelet Count 74L, Mean Platelet Volume 5.4L, Neutrophils (%) (Auto) , Lymphocytes (%) ( Auto) , Monocytes (%) (Auto) , Eosinophils (%) (Auto) , Basophils (%) (Auto) , Differential Total Cells Counted 100, Neutrophils % (Manual) 83H, Lymphocytes % (Manual) 5L, Monocytes % (Manual) 11H, Eosinophils % (Manual) 1, Basophils % ( Manual) 0, Band Neutrophils 0, Platelet Estimate DecreasedL, Platelet Morphology Normal, Macrocytosis 1+, Sodium Level 137, Potassium Level 3.4L, Chloride Level 97L, Carbon Dioxide Level 18L, Anion Gap 22H, Blood Urea Nitrogen 13, Creatinine 0.6, Estimat Glomerular Filtration Rate > 60, Glucose Level 62L, Calcium Level 8.5, Total Bilirubin 0.8, Aspartate Amino Transf (AST/ SGOT) 48H, Alanine Aminotransferase (ALT/SGPT) 27, Alkaline Phosphatase 91, Troponin I 0.000, Pro-B-Type Natriuretic Peptide 1247H, Total Protein 7.5, Albumin 3.2L, Globulin 4.3, Albumin/Globulin Ratio 0.7L, HIV (1&2) Antibody Rapid Negative 02/22/19 10:50: Arterial Blood pH 7.372, Arterial Blood Partial Pressure CO2 30.0L, Arterial Blood Partial Pressure O2 187.6H, Arterial Blood HCO3 17.0*L, Arterial Blood Oxygen Saturation 99.1, Arterial Blood Base Excess -7.0L, Akshat Test Positive 02/22/19 11:50: Urine Color Pale yellow, Urine Appearance Clear, Urine pH 5, Urine Specific [place] 1.015, Urine Protein 2+H, Urine Glucose (UA) Negative, Urine Ketones 4+H , Urine Blood 5+H, Urine Nitrite Negative, Urine Bilirubin Negative, Urine Urobilinogen Normal, Urine Leukocyte Esterase 3+H, Urine RBC 10-15H, Urine WBC 10-15H, Urine Squamous Epithelial Cells Few, Urine Bacteria Few 02/22/19 16:00: Prothrombin Time 10.0, Prothromb Time International Ratio 0.9, Iron Level 29L, Total Iron Binding Capacity 241L, Percent Iron Saturation 12L, Unsaturated Iron Binding 212, Ferritin 279, Carcinoembryonic Antigen [Pending], Hepatitis A IgM Antibody [Pending], Hepatitis B Surface Antigen [Pending], Hepatitis B Core IgM Antibody [Pending], Hepatitis C Antibody [Pending] Current Medications Medications (Trade) Dose Ordered Sig/[place] Route PRN Reason Start Time Stop Time Status Last Admin Dose Admin Acetaminophen (Tylenol) 650 mg Q6H PRN ORAL Mild Pain/Temp > 100.5 02/22/19 14:45 03/24/19 14:44 02/22/19 16:08 Albuterol/ Ipratropium (Albuterol/ Ipratropium) 3 ml Q4HRT HHN 02/22/19 15:00 02/27/19 14:59 02/22/19 15:45 Ceftriaxone Sodium 1 gm/ Dextrose 55 ml @ 110 mls/hr Q24H IVPB 02/23/19 09:00 03/02/19 08:59 Doxycycline Monohydrate (Doxycycline Monohydrate) 100 mg EVERY 12 HOURS ORAL 02/22/19 21:00 03/01/19 20:59 02/22/19 20:10 Gabapentin (Neurontin) 100 mg THREE TIMES A DAY ORAL 02/22/19 18:00 03/24/19 17:59 02/22/19 18:11 Ibuprofen (Motrin) 600 mg Q6H PRN ORAL For Pain 02/22/19 20:29 03/24/19 20:28 02/22/19 20:33 Methylprednisolone Sodium Succinate (Solu-MEDROL) 40 mg EVERY 8 HOURS IVP 02/22/19 22:00 03/24/19 21:59 Ondansetron HCl (Zofran) 4 mg Q8H PRN IVP Nausea & Vomiting 02/22/19 14:45 03/24/19 14:44 Pantoprazole (Protonix) 40 mg DAILY ORAL 02/22/19 14:45 03/24/19 14:44 02/22/19 16:03 Potassium Chloride (K-Dur) 20 meq TWICE A DAY ORAL 02/22/19 18:00 03/24/19 17:59 02/22/19 18:11 Sertraline HCl (Zoloft) 25 mg DAILY ORAL 02/23/19 09:00 03/25/19 08:59 Zolpidem Tartrate (Ambien) 5 mg HSPRN PRN ORAL Insomnia 02/22/19 20:00 03/01/19 19:59 02/22/19 20:11 Minh Mansfield MD Feb 22, 2019 21:47
[2019-02-22] MEDS: Solu-MEDROL 40mg Inj IVP SCH (22:25)
[2019-02-22] MEDS ORDERED: cefTRIAXone 1 GM in D5W 55 ML IVPB SCH (23:00)
[2019-02-23] VITALS: BP 153/85
--- NOTE | 2019-02-23 | NUR ---
NURSE NOTES: Pt refused breathing treatment, risks and benefits explained but still refused. Will continue to monitor.
--- NOTE | 2019-02-23 02:10 | NUR ---
NURSE NOTES: pt complain of headache, prn med given. ST on shade hanger. No sob noted. Will continue to monitor.
[2019-02-23] MEDS: Albuterol/Ipratropium 3ml neb HHN SCH ×3 (02:59→11:00)
[2019-02-23 04:00] VITALS: BP 152/73
[2019-02-23 04:36] LABS: HEMATOCRIT 36.1 % (37.0-47.0); HEMOGLOBIN 12.2 G/DL (12.0-16.0); MEAN CORPUSCULAR VOLUME 108 FL (80-99); PLATELET COUNT 84 K/UL (150-450); RED BLOOD COUNT 3.35 M/UL (4.20-5.40); RED CELL DISTRIBUTION WIDTH 13.6 % (11.6-14.8)
[2019-02-23 04:58] LABS: PHOSPHORUS 2.5 MG/DL (2.5-4.9)
[2019-02-23 05:02] LABS: ALANINE AMINOTRANSFERASE 27 U/L (12-78); ALBUMIN 2.9 G/DL (3.4-5.0); ALBUMIN/GLOBULIN RATIO 0.6 (1.0-2.7); ALKALINE PHOSPHATASE 99 U/L (46-116); ANION GAP 16 mmol/L (5-15); ASPARTATE AMINO TRANSFERASE 38 U/L (15-37); BILIRUBIN,TOTAL 0.6 MG/DL (0.2-1.0); BLOOD UREA NITROGEN 19 mg/dL (7-18); CARBON DIOXIDE 21 MMOL/L (21-32); CHLORIDE 97 MMOL/L (98-107); CREATININE 0.5 MG/DL (0.55-1.30); POTASSIUM 3.9 MMOL/L (3.5-5.1); SODIUM 134 MMOL/L (136-145)
[2019-02-23] MEDS: Solu-MEDROL 40mg Inj IVP SCH ×3 (06:14→21:40)
[2019-02-23] MEDS ORDERED: Lidocaine 1% Plain 30 ml INJ ONE (07:00)
[2019-02-23] MEDS ORDERED: Heparin1,000 units/500ml Premix(Conc:2 units/ml) ONE (07:00)
--- NOTE | 2019-02-23 07:20 | NUR ---
NURSE NOTES: Received pt in bed awake alert and OX4. Saturating adequately on room air. Unable to restart IV. PICC ordered per Dimitris Pitts. In no apparent pain, sob or discomfort. VSS Afebrile. SR-ST on monitoring specialist. Will continue to monitor.
--- NOTE | 2019-02-23 07:37 | NUR ---
HAND-OFF: Report given to CECILIO Hankins.
[2019-02-23 08:00] VITALS: BP 154/94
[2019-02-23] MEDS: cefTRIAXone 1 GM in D5W 55 ML IVPB SCH (09:29)
[2019-02-23] MEDS: Sertraline 50mg tab ORAL SCH (09:30)
[2019-02-23] MEDS: Doxycycline Monohydrate 100mg ORAL SCH ×2 (09:35→21:39)
--- NOTE | 2019-02-23 09:42 | Consultation ---
History of Present Illness General Chief Complaint: Dyspnea/Respdistress Present Illness Allergies: Coded Allergies: CODEINE (Verified Allergy, Unknown, 09/15/17) Medication History Scheduled Gabapentin* (Gabapentin*), MG ORAL THREE TIMES A DAY, (Reported) Ibuprofen* (Motrin*), 400 MG ORAL FOUR TIMES A DAY, (Reported) Sertraline Hcl* (Sertraline Hcl*), MG ORAL DAILY, (Reported) Discontinued Medications Unable to Obtain Medications (Unable To Obtain Meds), (Reported) Discontinued Reason: Pt stopped taking med Patient History Healthcare decision maker Resuscitation status Full Code Advanced Directive on File No Physical Exam Last 24 Hour Vital Signs Date Time Temp Pulse Resp B/P (MAP) Pulse Ox O2 Delivery O2 Flow Rate FiO2 02/23/19 08:00 2.0 02/23/19 08:00 Nasal Cannula 2.0 02/23/19 07:37 96 Nasal Cannula 2.0 28 02/23/19 04:00 Nasal Cannula 2.0 02/23/19 04:00 98.5 114 28 152/73 (99) 96 02/23/19 04:00 2.0 02/23/19 04:00 100 02/23/19 00:00 99.2 107 26 153/85 (107) 96 02/23/19 00:00 Nasal Cannula 2.0 02/23/19 00:00 114 02/23/19 00:00 2.0 02/22/19 20:00 2.0 02/22/19 20:00 97.9 101 26 145/76 (99) 96 02/22/19 20:00 Nasal Cannula 2.0 02/22/19 20:00 96 Nasal Cannula 2.0 28 02/22/19 20:00 108 02/22/19 20:00 76 20 97 Nasal Cannula 2.0 28 70 20 94 02/22/19 19:00 2.0 28 02/22/19 16:38 98.1 02/22/19 16:00 97.9 111 16 132/83 (99) 98 02/22/19 16:00 96 02/22/19 16:00 2.0 02/22/19 15:44 95 Nasal Cannula 2.0 28 02/22/19 15:42 81 20 98 Nasal Cannula 2.0 28 79 20 95 02/22/19 15:33 Nasal Cannula 2.0 02/22/19 15:00 98.1 101 22 161/90 (113) 98 02/22/19 14:03 98.8 101 20 138/73 100 Nasal Cannula 4.0 02/22/19 12:58 99.0 110 18 145/93 100 Nasal Cannula 4.0 02/22/19 11:51 99.0 106 20 144/87 100 Bi-pap 40 02/22/19 10:41 120 17 100 Facial 40 02/22/19 10:38 120 17 100 02/22/19 09:42 99.0 133 24 136/73 97 Bi-pap 40 Intake and Output 02/22/19 02/23/19 19:00 07:00 Intake Total 300 ml 300 ml Balance 300 ml 300 ml Intake Oral 200 ml 300 ml IV Total 100 ml # Voids 3 2 Laboratory Tests Test 02/22/19 10:00 02/22/19 10:50 02/22/19 11:50 02/22/19 16:00 White Blood Count 11.5 K/UL (4.8-10.8) H Red Blood Count 3.17 M/UL (4.20-5.40) L Hemoglobin 11.5 G/DL (12.0-16.0) L Hematocrit 34.2 % (37.0-47.0) L Mean Corpuscular Volume 108 FL (80-99) H Mean Corpuscular Hemoglobin 36.2 PG (27.0-31.0) H Mean Corpuscular Hemoglobin Concent 33.6 G/DL (32.0-36.0) Red Cell Distribution Width 13.6 % (11.6-14.8) Platelet Count 74 K/UL (150-450) L Mean Platelet Volume 5.4 FL (6.5-10.1) L Neutrophils (%) (Auto) % (45.0-75.0) Lymphocytes (%) (Auto) % (20.0-45.0) Monocytes (%) (Auto) % (1.0-10.0) Eosinophils (%) (Auto) % (0.0-3.0) Basophils (%) (Auto) % (0.0-2.0) Differential Total Cells Counted 100 Neutrophils % (Manual) 83 % (45-75) H Lymphocytes % (Manual) 5 % (20-45) L Monocytes % (Manual) 11 % (1-10) H Eosinophils % (Manual) 1 % (0-3) Basophils % (Manual) 0 % (0-2) Band Neutrophils 0 % (0-8) Platelet Estimate Decreased L Platelet Morphology Normal Macrocytosis 1+ Sodium Level 137 MMOL/L (136-145) Potassium Level 3.4 MMOL/L (3.5-5.1) L Chloride Level 97 MMOL/L (98-107) L Carbon Dioxide Level 18 MMOL/L (21-32) L Anion Gap 22 mmol/L (5-15) H Blood Urea Nitrogen 13 mg/dL (7-18) Creatinine 0.6 MG/DL (0.55-1.30) Estimat Glomerular Filtration Rate > 60 mL/min (>60) Glucose Level 62 MG/DL (74-106) L Calcium Level 8.5 MG/DL (8.5-10.1) Total Bilirubin 0.8 MG/DL (0.2-1.0) Aspartate Amino Transf (AST/SGOT) 48 U/L (15-37) H Alanine Aminotransferase (ALT/SGPT) 27 U/L (12-78) Alkaline Phosphatase 91 U/L (46-116) Troponin I 0.000 ng/mL (0.000-0.056) Pro-B-Type Natriuretic Peptide 1247 pg/mL (0-125) H Total Protein 7.5 G/DL (6.4-8.2) Albumin 3.2 G/DL (3.4-5.0) L Globulin 4.3 g/dL Albumin/Globulin Ratio 0.7 (1.0-2.7) L HIV (1&2) Antibody Rapid Negative (NEGATIVE) Arterial Blood pH 7.372 (7.350-7.450) Arterial Blood Partial Pressure CO2 30.0 mmHg (35.0-45.0) L Arterial Blood Partial Pressure O2 187.6 mmHg (75.0-100.0) H Arterial Blood HCO3 17.0 mmol/L (22.0-26.0) *L Arterial Blood Oxygen Saturation 99.1 % (95-100) Arterial Blood Base Excess -7.0 (-2-2) L Akshat Test Positive Urine Color Pale yellow Urine Appearance Clear Urine pH 5 (4.5-8.0) Urine Specific [place] 1.015 (1.005-1.035) Urine Protein 2+ (NEGATIVE) H Urine Glucose (UA) Negative (NEGATIVE) Urine Ketones 4+ (NEGATIVE) H Urine Blood 5+ (NEGATIVE) H Urine Nitrite Negative (NEGATIVE) Urine Bilirubin Negative (NEGATIVE) Urine Urobilinogen Normal MG/DL (0.0-1.0) Urine Leukocyte Esterase 3+ (NEGATIVE) H Urine RBC 10-15 /HPF (0 - 2) H Urine WBC 10-15 /HPF (0 - 2) H Urine Squamous Epithelial Cells Few /LPF (NONE/OCC) Urine Bacteria Few /HPF (NONE) Prothrombin Time 10.0 SEC (9.30-11.50) Prothromb Time International Ratio 0.9 (0.9-1.1) Iron Level 29 ug/dL (50-175) L Total Iron Binding Capacity 241 ug/dL (250-450) L Percent Iron Saturation 12 % (15-50) L Unsaturated Iron Binding 212 ug/dL (112-346) Ferritin 279 NG/ML (8-388) Carcinoembryonic Antigen Pending Hepatitis A IgM Antibody Pending Hepatitis B Surface Antigen Pending Hepatitis B Core IgM Antibody Pending Hepatitis C Antibody Pending Test 02/23/19 03:40 White Blood Count 11.0 K/UL (4.8-10.8) H Red Blood Count 3.35 M/UL (4.20-5.40) L Hemoglobin 12.2 G/DL (12.0-16.0) Hematocrit 36.1 % (37.0-47.0) L Mean Corpuscular Volume 108 FL (80-99) H Mean Corpuscular Hemoglobin 36.4 PG (27.0-31.0) H Mean Corpuscular Hemoglobin Concent 33.7 G/DL (32.0-36.0) Red Cell Distribution Width 13.6 % (11.6-14.8) Platelet Count 84 K/UL (150-450) L Mean Platelet Volume 7.2 FL (6.5-10.1) Neutrophils (%) (Auto) % (45.0-75.0) Lymphocytes (%) (Auto) % (20.0-45.0) Monocytes (%) (Auto) % (1.0-10.0) Eosinophils (%) (Auto) % (0.0-3.0) Basophils (%) (Auto) % (0.0-2.0) Differential Total Cells Counted 100 Neutrophils % (Manual) 94 % (45-75) H Lymphocytes % (Manual) 2 % (20-45) L Monocytes % (Manual) 4 % (1-10) Eosinophils % (Manual) 0 % (0-3) Basophils % (Manual) 0 % (0-2) Band Neutrophils 0 % (0-8) Platelet Estimate Adequate Platelet Morphology Normal Anisocytosis 1+ Macrocytosis 1+ Sodium Level 134 MMOL/L (136-145) L Potassium Level 3.9 MMOL/L (3.5-5.1) Chloride Level 97 MMOL/L (98-107) L Carbon Dioxide Level 21 MMOL/L (21-32) Anion Gap 16 mmol/L (5-15) H Blood Urea Nitrogen 19 mg/dL (7-18) H Creatinine 0.5 MG/DL (0.55-1.30) L Estimat Glomerular Filtration Rate > 60 mL/min (>60) Glucose Level 139 MG/DL (74-106) H Calcium Level 9.0 MG/DL (8.5-10.1) Phosphorus Level 2.5 MG/DL (2.5-4.9) Magnesium Level 1.4 MG/DL (1.8-2.4) L Total Bilirubin 0.6 MG/DL (0.2-1.0) Gamma Glutamyl Transpeptidase 41 U/L (5-85) Aspartate Amino Transf (AST/SGOT) 38 U/L (15-37) H Alanine Aminotransferase (ALT/SGPT) 27 U/L (12-78) Alkaline Phosphatase 99 U/L (46-116) C-Reactive Protein, Quantitative 49.2 mg/dL (0.00-0.90) H Pro-B-Type Natriuretic Peptide 2018 pg/mL (0-125) H Total Protein 7.7 G/DL (6.4-8.2) Albumin 2.9 G/DL (3.4-5.0) L Globulin 4.8 g/dL Albumin/Globulin Ratio 0.6 (1.0-2.7) L Vitamin B12 Level 467 PG/ML (193-986) Folate 4.9 NG/ML (8.6-58.9) L Thyroid Stimulating Hormone (TSH) 0.502 uiU/mL (0.358-3.740) Microbiology Date/Time Source Procedure Growth Status 02/22/19 10:00 Nasal Nares - Final Complete 02/22/19 10:00 Nasal Nares - Final Complete 02/22/19 11:50 Urine,Clean Catch Urine Culture - Preliminary Gram Negative Bacillus 1 Resulted Height (Feet): 5 Height (Inches): 8.00 Weight (Pounds): 142 Medications Current Medications Medications (Trade) Dose Ordered Sig/[place] Route PRN Reason Start Time Stop Time Status Last Admin Dose Admin Acetaminophen (Tylenol) 650 mg Q6H PRN ORAL Mild Pain/Temp > 100.5 02/22/19 14:45 03/24/19 14:44 02/23/19 01:59 Albuterol/ Ipratropium (Albuterol/ Ipratropium) 3 ml Q4HRT HHN 02/22/19 15:00 02/27/19 14:59 02/22/19 21:42 Ceftriaxone Sodium 1 gm/ Dextrose 55 ml @ 110 mls/hr Q24H IVPB 02/23/19 09:00 03/02/19 08:59 02/23/19 09:29 Doxycycline Monohydrate (Doxycycline Monohydrate) 100 mg EVERY 12 HOURS ORAL 02/22/19 21:00 03/01/19 20:59 02/23/19 09:35 Gabapentin (Neurontin) 100 mg THREE TIMES A DAY ORAL 02/22/19 18:00 03/24/19 17:59 02/23/19 09:29 Ibuprofen (Motrin) 600 mg Q6H PRN ORAL For Pain 02/22/19 20:29 03/24/19 20:28 02/23/19 09:34 Methylprednisolone Sodium Succinate (Solu-MEDROL) 40 mg EVERY 8 HOURS IVP 02/22/19 22:00 03/24/19 21:59 02/23/19 06:14 Ondansetron HCl (Zofran) 4 mg Q8H PRN IVP Nausea & Vomiting 02/22/19 14:45 03/24/19 14:44 Pantoprazole (Protonix) 40 mg DAILY ORAL 02/22/19 14:45 03/24/19 14:44 02/23/19 09:30 Potassium Chloride (K-Dur) 20 meq TWICE A DAY ORAL 02/22/19 18:00 03/24/19 17:59 1/8/20 09:29 Sertraline HCl (Zoloft) 25 mg DAILY ORAL 02/23/19 09:00 03/25/19 08:59 02/23/19 09:30 Zolpidem Tartrate (Ambien) 5 mg HSPRN PRN ORAL Insomnia 02/22/19 20:00 03/01/19 19:59 02/22/19 20:11 Assessment/Plan Assessment/Plan: Hematology Consultation REQ MD: Arslan Beasley RFC: Thrombocytopenia and macrocytosis eval DOS: 02/23/19 ID [id number] old female, presents to the emergency department today with acute onset respiratory distress. Patient has a history of COPD. Patient states that she developed flulike symptoms for last few days and then today developed acute onset of cough congestion shortness of breath. EMS was contacted and patient was brought here for further evaluation. No other complaints are noted per symptoms noted to be severe. No other modifying factors. No other associated signs and symptoms. No other complaints were noted. Discussed her care with and she has been here before and through the Er, her labs noted, and imaging reviewed, with a us that shows cirrhosis. Allergies: CODEINE (Verified Allergy, Unknown, 09/15/17) Past Medical History: COPD, other - Substance abuse, Seizures, hepatitis B or C (she isn't sure) Social History: Reports: +++ smoking; Denies: alcohol use, drug use, she is single, has 4 kids, has not worked in hte past, Review of Systems 14 point ROS was completed and is otherwise negative Physical Exam Gen: alert, severe distress HEENT: normal ENT inspection, hearing grossly sarina Resp: respiratory distress, decreased breath sounds, accessory muscle use ++ Cardiovascular: RRR, no mgr GI: normal inspection, normal bowel sounds, non tender, soft, no guarding, no hernia Genitourinary: no CVA tenderness Musculoskeletal: normal inspection, back normal, normal range of motion Labs: noted Imaging: reviewed Assessment and Recs: # Thrombocytopenia is likely related to underlying hepatitis, will obtain hepatitis panel --> hiv and hepatitis panel ordered --> us of the abdomen shows cirrhosis and varices --> transfuse as needed --> outpatient hepatitis management as required # Leukocytosis r/o infection --> trend wbc as needed 11.5-->11 --> on abx as needed --> continue on steriods # Respiratory distress is likely 2/2 copd exacerbation --> breahting treatments on prn basis --> bipap on prn basis # Hypokalemia --> replete K as needed --> renal eval prn # UTI (urinary tract infection) --> s/p abx # Dvt ppx scds Appreciate consultation and dw Dimitris Starks MD Feb 23, 2019 09:42
--- NOTE | 2019-02-23 11:00 | NUR ---
NURSE NOTES: Condition unchanged. Ambulated to bathroom w/minimal assist. Medicated with motrim 600mg po effectively. Will continue. POC
[2019-02-23 12:00] VITALS: BP 154/83
--- NOTE | 2019-02-23 12:52 | NUR ---
RADIOLOGY NOTE: LEFT UPPER EXTREMITY PICC LINE PLACEMENT B DR. VALENTINA LANG. FA
--- NOTE | 2019-02-23 14:06 | Diagnostic Imaging Report ---
Indication: terminal gauger venous access Findings: After the indications, procedure, risks, complications, and alternatives of the procedure were explained, written informed consent was obtained. The left upper extremity was prepped with alcohol. All elements of maximal sterile barrier technique were followed including usage of a cap, mask, sterile gown, sterile gloves, hand hygiene and a large sterile sheet. Sonographic evaluation of the upper extremity was performed demonstrating a patent and compressible basilic vein. Access was obtained under real-time ultrasound guidance (with utilization of sterile gel and sterile probe cover) and digital image was saved and archived. An .018 wire was introduced. Needle exchanged for a 5 Lao peel-away sheath. Measurements were obtained. A 5 Lao dual-lumen Power PICC line catheter was cut to 40 cm and introduced over the wire. Peel-away sheath and wire were removed.Catheter was secured to the skin using 2-0 Prolene suture. Both ports aspirate and flush easily. Post procedure chest x-ray demonstrates good position of the PICC line catheter within the SVC. Impression: Successful placement of an upper extremity PICC line catheter
[2019-02-23] MEDS: Levalbuterol Inh UD 1.25mg/0.5ml HHN SCH ×3 (15:00→19:00)
[2019-02-23 16:00] VITALS: BP 159/92
[2019-02-23] MEDS ORDERED: Levalbuterol Inh UD 1.25mg/0.5ml HHN SCH (16:00)
--- NOTE | 2019-02-23 16:31 | Consultation ---
Consult Note Consult Note asked to eval at the request of Dr Beasley Patient presents to the emergency department today with acute onset respiratory distress. Patient has a history of COPD. Patient states that she developed flulike symptoms for last few days and then today developed acute onset of cough congestion shortness of breath. EMS was contacted and patient was brought here for further evaluation. No other complaints are noted per symptoms noted to be severe. No other modifying factors. No other associated signs and symptoms. No other complaints were noted. CODEINE (Verified Allergy, Unknown, 09/15/17) Past Medical History: COPD, other - Substance abuse Past Medical History: No History, Except For Hx COPD: Yes History Of Psychiatric Problem: Yes - substance abuse interviewed examined data reviewed > Assessment/Plan HTN Respiratory distress Hypokalemia Low mag Low folate UTI (urinary tract infection) K and Mag supplement antibiotics adjust BP meds urione tox screnn per orders Loco Menjivar MD Feb 23, 2019 16:31
--- NOTE | 2019-02-23 17:13 | NUR ---
CASE MANAGEMENT:INITIAL REVIEW 54 YR OLD FEMALE BIBA FROM HOME CC;SOB. RESP DISTRESS SI;RESP DISTRESS. UTI. HYPOKALEMIA 99.0 106 20 144/87 100% ON BI-PAP FIO2 40% WBC 11 H/H 11.5/34.2 K+ 3.4 AST 48 ALB 3.2 CXR (-) IS;DUO NEB HHN SOLU MEDROL IV X1 MAG SULFATE IV X1 ADMITTED TO [facility]
[2019-02-23] MEDS: Docusate 100mg cap ORAL SCH (17:49)
[2019-02-23] MEDS: Thiamine 100mg tab ORAL SCH (17:57)
--- NOTE | 2019-02-23 18:00 | Pulmonology Progress Note ---
Assessment/Plan Assessment/Plan Pulmonary Progress Note Patient is a 54 year old woman with a past history of Chronic Obstructive Pulmonary Disease, Hepatitis B. Patient had flulike symptoms for last few days and then today developed acute onset of cough congestion shortness of breath. Maintenance treatment for COPD PRN Albuterol LE Dupplex negative for DVT, less SOB Allergies: CODEINE Past Medical History: Chronic Obstructive Pulmonary Disease, Hepatitis B, Substance abuse Social History: Reports: smoking; Denies: alcohol use, drug use All Other Systems: negative except mentioned in HPI Physical Exam Vital Signs Noted General Appearance: alert, comfortable on NC O2, less anxious Head: atraumatic Eyes: bilateral eye normal inspection ENT: normal ENT inspection, moist mm Neck: normal inspection, full range of motion, no LN Respiratory: respiratory distress, decreased breath sounds Cardiovascular: no edema, tachycardia, HS1, HS2 normal Gastrointestinal: normal inspection, normal bowel sounds, non tender, soft, no guarding, no hernia Genitourinary: no CVA tenderness Musculoskeletal: normal inspection, back normal, normal range of motion Neurologic: alert, responsive, speech normal, normal inspection Skin: no rash Impression: Chronic Obstructive Pulmonary Disease exacerbation Bronchitis Hepatitis B Fatty liver on Abdominal US Respiratory distress Hypokalemia Possible urinary tract infection Thrombocytopenia Plan - IV Solumedrol - HHN - O2 PRN - BiPAP PRN - PO Doxycycline - May need diuresis given increased NPA - PPX - SCD - SOURCING COORDINATOR Medications Labs Test 02/22/19 10:00 02/22/19 10:50 02/22/19 11:50 White Blood Count 11.5 K/UL (4.8-10.8) Red Blood Count 3.17 M/UL (4.20-5.40) Hemoglobin 11.5 G/DL (12.0-16.0) Hematocrit 34.2 % (37.0-47.0) Mean Corpuscular Volume 108 FL (80-99) Mean Corpuscular Hemoglobin 36.2 PG (27.0-31.0) Mean Corpuscular Hemoglobin Concent 33.6 G/DL (32.0-36.0) Red Cell Distribution Width 13.6 % (11.6-14.8) Platelet Count 74 K/UL (150-450) Mean Platelet Volume 5.4 FL (6.5-10.1) Neutrophils (%) (Auto) % (45.0-75.0) Lymphocytes (%) (Auto) % (20.0-45.0) Monocytes (%) (Auto) % (1.0-10.0) Eosinophils (%) (Auto) % (0.0-3.0) Basophils (%) (Auto) % (0.0-2.0) Differential Total Cells Counted 100 Neutrophils % (Manual) 83 % (45-75) Lymphocytes % (Manual) 5 % (20-45) Monocytes % (Manual) 11 % (1-10) Eosinophils % (Manual) 1 % (0-3) Basophils % (Manual) 0 % (0-2) Band Neutrophils 0 % (0-8) Platelet Estimate Decreased Platelet Morphology Normal Macrocytosis 1+ Sodium Level 137 MMOL/L (136-145) Potassium Level 3.4 MMOL/L (3.5-5.1) Chloride Level 97 MMOL/L (98-107) Carbon Dioxide Level 18 MMOL/L (21-32) Anion Gap 22 mmol/L (5-15) Blood Urea Nitrogen 13 mg/dL (7-18) Creatinine 0.6 MG/DL (0.55-1.30) Estimat Glomerular Filtration Rate > 60 mL/min (>60) Glucose Level 62 MG/DL (74-106) Calcium Level 8.5 MG/DL (8.5-10.1) Total Bilirubin 0.8 MG/DL (0.2-1.0) Aspartate Amino Transf (AST/SGOT) 48 U/L (15-37) Alanine Aminotransferase (ALT/SGPT) 27 U/L (12-78) Alkaline Phosphatase 91 U/L (46-116) Troponin I 0.000 ng/mL (0.000-0.056) Pro-B-Type Natriuretic Peptide 1247 pg/mL (0-125) Total Protein 7.5 G/DL (6.4-8.2) Albumin 3.2 G/DL (3.4-5.0) Globulin 4.3 g/dL Albumin/Globulin Ratio 0.7 (1.0-2.7) Arterial Blood pH 7.372 (7.350-7.450) Arterial Blood Partial Pressure CO2 30.0 mmHg (35.0-45.0) Arterial Blood Partial Pressure O2 187.6 mmHg (75.0-100.0) Arterial Blood HCO3 17.0 mmol/L (22.0-26.0) Arterial Blood Oxygen Saturation 99.1 % (95-100) Arterial Blood Base Excess -7.0 (-2-2) Akshat Test Positive Urine Color Pale yellow Urine Appearance Clear Urine pH 5 (4.5-8.0) Urine Specific [place] 1.015 (1.005-1.035) Urine Protein 2+ (NEGATIVE) Urine Glucose (UA) Negative (NEGATIVE) Urine Ketones 4+ (NEGATIVE) Urine Blood 5+ (NEGATIVE) Urine Nitrite Negative (NEGATIVE) Urine Bilirubin Negative (NEGATIVE) Urine Urobilinogen Normal MG/DL (0.0-1.0) Urine Leukocyte Esterase 3+ (NEGATIVE) Urine RBC 10-15 /HPF (0 - 2) Urine WBC 10-15 /HPF (0 - 2) Urine Squamous Epithelial Cells Few /LPF (NONE/OCC) Urine Bacteria Few /HPF (NONE) EKG Diagnostic Results Rate: tachycardiac Rhythm: NSR ST Segments: no acute changes Chest X-Ray Ordered: no consolidation, no effusion, no pneumothorax, no acute cardiopulmonary disease Subjective ROS Limited/Unobtainable: No Allergies: Coded Allergies: CODEINE (Verified Allergy, Unknown, 09/15/17) Objective Last 24 Hour Vital Signs Date Time Temp Pulse Resp B/P (MAP) Pulse Ox O2 Delivery O2 Flow Rate FiO2 02/23/19 17:33 98.6 02/23/19 16:25 104 18 98 Room Air 21 96 20 95 02/23/19 12:00 2.0 02/23/19 12:00 Nasal Cannula 2.0 02/23/19 08:00 98.6 100 21 154/94 (114) 96 02/23/19 08:00 2.0 02/23/19 08:00 100 02/23/19 08:00 Nasal Cannula 2.0 02/23/19 07:37 96 Nasal Cannula 2.0 28 02/23/19 04:00 Nasal Cannula 2.0 02/23/19 04:00 98.5 114 28 152/73 (99) 96 02/23/19 04:00 2.0 02/23/19 04:00 100 02/23/19 00:00 99.2 107 26 153/85 (107) 96 02/23/19 00:00 Nasal Cannula 2.0 02/23/19 00:00 114 02/23/19 00:00 2.0 02/22/19 20:00 2.0 02/22/19 20:00 97.9 101 26 145/76 (99) 96 02/22/19 20:00 Nasal Cannula 2.0 02/22/19 20:00 96 Nasal Cannula 2.0 28 02/22/19 20:00 108 02/22/19 20:00 76 20 97 Nasal Cannula 2.0 28 70 20 94 02/22/19 19:00 2.0 28 Intake and Output 02/22/19 02/23/19 19:00 07:00 Intake Total 300 ml 300 ml Balance 300 ml 300 ml Intake Oral 200 ml 300 ml IV Total 100 ml # Voids 3 2 Microbiology Date/Time Source Procedure Growth Status 02/22/19 10:00 Nasal Nares - Final Complete 02/22/19 10:00 Nasal Nares - Final Complete 02/22/19 11:50 Urine,Clean Catch Urine Culture - Preliminary Gram Negative Bacillus 1 Resulted Laboratory Tests 02/23/19 03:40: White Blood Count 11.0H, Red Blood Count 3.35L, Hemoglobin 12.2, Hematocrit 36.1L, Mean Corpuscular Volume 108H, Mean Corpuscular Hemoglobin 36.4H, Mean Corpuscular Hemoglobin Concent 33.7, Red Cell Distribution Width 13.6, Platelet Count 84L, Mean Platelet Volume 7.2, Neutrophils (%) (Auto) , Lymphocytes (%) ( Auto) , Monocytes (%) (Auto) , Eosinophils (%) (Auto) , Basophils (%) (Auto) , Differential Total Cells Counted 100, Neutrophils % (Manual) 94H, Lymphocytes % (Manual) 2L, Monocytes % (Manual) 4, Eosinophils % (Manual) 0, Basophils % ( Manual) 0, Band Neutrophils 0, Platelet Estimate Adequate, Platelet Morphology Normal, Anisocytosis 1+, Macrocytosis 1+, Sodium Level 134L, Potassium Level 3.9 , Chloride Level 97L, Carbon Dioxide Level 21, Anion Gap 16H, Blood Urea Nitrogen 19H, Creatinine 0.5L, Estimat Glomerular Filtration Rate > 60, Glucose Level 139H, Calcium Level 9.0, Phosphorus Level 2.5, Magnesium Level 1.4L, Total Bilirubin 0.6, Gamma Glutamyl Transpeptidase 41, Aspartate Amino Transf ( AST/SGOT) 38H, Alanine Aminotransferase (ALT/SGPT) 27, Alkaline Phosphatase 99, C-Reactive Protein, Quantitative 49.2H, Pro-B-Type Natriuretic Peptide 2018H, Total Protein 7.7, Albumin 2.9L, Globulin 4.8, Albumin/Globulin Ratio 0.6L, Vitamin B12 Level 467, Folate 4.9L, Thyroid Stimulating Hormone (TSH) 0.502 Current Medications Medications (Trade) Dose Ordered Sig/[place] Route PRN Reason Start Time Stop Time Status Last Admin Dose Admin Acetaminophen (Tylenol) 650 mg Q6H PRN ORAL Mild Pain/Temp > 100.5 02/22/19 14:45 03/24/19 14:44 02/23/19 01:59 Carvedilol (Coreg) 12.5 mg EVERY 12 HOURS ORAL 02/23/19 21:00 03/25/19 20:59 Ceftriaxone Sodium 1 gm/ Dextrose 55 ml @ 110 mls/hr Q24H IVPB 02/23/19 09:00 03/02/19 08:59 02/23/19 09:29 Chlorhexidine Gluconate (Heike-Hex 2%) 1 applic DAILY@2000 TOPIC 02/23/19 20:00 03/25/19 19:59 Docusate Sodium (Colace) 100 mg THREE TIMES A DAY ORAL 02/23/19 18:00 03/25/19 17:59 02/23/19 17:49 Doxycycline Monohydrate (Doxycycline Monohydrate) 100 mg EVERY 12 HOURS ORAL 02/22/19 21:00 03/01/19 20:59 02/23/19 09:35 Folic Acid (Folate) 5 mg DAILY ORAL 02/23/19 16:45 03/25/19 16:44 Gabapentin (Neurontin) 100 mg THREE TIMES A DAY ORAL 02/22/19 18:00 03/24/19 17:59 02/23/19 17:56 Ibuprofen (Motrin) 600 mg Q6H PRN ORAL For Pain 02/22/19 20:29 03/24/19 20:28 02/23/19 15:51 Levalbuterol HCl (Xopenex) 0.625 mg Q6HRT HHN 02/23/19 15:00 02/28/19 14:59 02/23/19 16:17 Magnesium Sulfate 100 ml @ 100 mls/hr Q1H IVPB 02/23/19 14:00 02/23/19 17:59 02/23/19 17:48 Methylprednisolone Sodium Succinate (Solu-MEDROL) 40 mg EVERY 8 HOURS IVP 02/22/19 22:00 03/24/19 21:59 02/23/19 15:51 Ondansetron HCl (Zofran) 4 mg Q8H PRN IVP Nausea & Vomiting 02/22/19 14:45 03/24/19 14:44 Pantoprazole (Protonix) 40 mg BID ORAL 02/23/19 18:00 03/24/19 14:44 02/23/19 17:49 Potassium Chloride (K-Dur) 20 meq TWICE A DAY ORAL 02/22/19 18:00 03/24/19 17:59 02/23/19 17:48 Sertraline HCl (Zoloft) 25 mg DAILY ORAL 02/23/19 09:00 03/25/19 08:59 02/23/19 09:30 Thiamine HCl (Vitamin B1) 100 mg DAILY ORAL 02/23/19 16:45 03/25/19 16:44 02/23/19 17:57 Zolpidem Tartrate (Ambien) 5 mg HSPRN PRN ORAL Insomnia 02/22/19 20:00 03/01/19 19:59 02/22/19 20:11 Minh Mansfield MD Feb 23, 2019 18:00
--- NOTE | 2019-02-23 19:00 | NUR ---
NURSE NOTES: In bed awake alert and OX4. Saturating adequately on room air. IV meds infusing well left upper arm picc. In no apparent pain, sob or discomfort. Remain SR-ST on administrative assistant receptionist. No distress noted. Will continue to monitor.
--- NOTE | 2019-02-23 19:30 | NUR ---
NURSE NOTES: Received patient from Adia Quintero RN. patient is observed sitting in bed, AO X4, denies pain at this time. patient is on room air, tolerating well, saturating at 98%. no s/sx of respiratory distress noted. cardiac technologist shows SR with current heart rate of 91 at this time. no acute cardiac distress noted. JESSICA PICC line noted, patent and intact, currently running 1 gram magnesium at 100 cc/hr. dressing dry and intact; dressing to be changed 02/24/2019. bed in lowest position and locked, siderails up X2, call light within reach. will continue to monitor.
[2019-02-23 20:00] VITALS: BP 158/89
[2019-02-23] MEDS ORDERED: Dyna-Hex 2% Top Sol 2oz TOPIC SCH (20:00)
--- NOTE | 2019-02-23 21:30 | Consultation ---
DATE OF CONSULTATION: 02/23/2019 INFECTIOUS DISEASE CONSULTATION CONSULTING PHYSICIAN: Gabe Everett M.D. PRIMARY ATTENDING PHYSICIAN: Arslan Fontanez M.D. REASON FOR CONSULTATION: COPD exacerbation. HISTORY OF PRESENT ILLNESS: This is a 54-year-old white female, admitted yesterday, complaining of respiratory distress, cough, congestion, and shortness of breath that started a few days after flu-like symptoms. She has leukocytosis. PAST MEDICAL HISTORY: Significant for COPD, alcohol abuse and withdrawal, nicotine dependence, hepatitis C, did not get treatment for it. ALLERGIES: Allergic to codeine. MEDICATIONS: , ceftriaxone, methylprednisone, doxycycline, ibuprofen, Ambien, gabapentin, Tylenol, Zofran. SOCIAL HISTORY: Single. Smokes 10 cigarettes a day. Drinking alcohol, but does not provide the amount. She had a history of substance abuse. REVIEW OF SYSTEMS: Coughing, shortness of breath. No significant fever. No nausea. No vomiting. No diarrhea. She has urinary incontinence usually with stress. PHYSICAL EXAMINATION: VITAL SIGNS: Temperature 98.6, pulse 100, blood pressure is 154/94. HEAD AND NECK: Has poor dentition. HEART: Tachycardic. The patient had a left arm PICC line that just was placed in the hospital. LUNGS: Breathing fast. Decrease in breathing sounds and lung expansion. ABDOMEN: Soft, nontender. EXTREMITIES: Has no edema. NEUROLOGIC: Awake, alert, oriented. Seems to have some apprehension. LABORATORY AND DIAGNOSTIC DATA: WBC 11, hemoglobin 12.2, hematocrit 36.1, platelet is 84,000. Sodium 134, potassium 3.9, chloride 97, bicarb 21, BUN 19, creatinine 0.5. Glucose 139. BNP is elevated in 2018. The patient had abdominal ultrasound that showed fatty liver. Influenza A and B were negative. Urine culture growing gram-negative rods. UA showed WBC of 10 to 15, RBC of 10 to 15. Chest x-ray showed no acute process. IMPRESSION: COPD exacerbation. The patient has tachycardia and borderline leukocytosis, hepatitis C, hypokalemia, thrombocytopenia, alcoholic fatty liver, nicotine dependence. RECOMMENDATION: We will continue with ceftriaxone and doxycycline. The patient will receive nicotine patch and will continue with bronchodilators. At the end of my exam, I thank Dr. Fontanez for involving me in the care of this patient. Gabe Everett M.D. DR: MARIBEL JOB#: [id number] CC:
[2019-02-23] MEDS: Carvedilol 12.5mg tab ORAL SCH (21:39)
[2019-02-23] MEDS: Zolpidem 5mg tab ORAL PRN (21:40)
--- NOTE | 2019-02-23 22:00 | NUR ---
NURSE NOTES: shift mandatory screen requires date for dressing change although it is not due until 02/24/19. insertion date and time inputted in dressing change section. will endorse to AM nurse to change dressing at due time of 02/24/19 at 1401. Addendum: 02/24/19 at 0120 by OMAR MCCABE RN RN dressing change to be done 02/24/19 at 1252.
[2019-02-24] VITALS: BP 149/86
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
[2019-02-24] MEDS: Levalbuterol Inh UD 1.25mg/0.5ml HHN SCH ×4 (01:53→19:18)
[2019-02-24 04:00] VITALS: BP 148/92
[2019-02-24] MEDS: Solu-MEDROL 40mg Inj IVP SCH ×2 (05:21→20:47)
[2019-02-24 05:39] LABS: HEMATOCRIT 36.9 % (37.0-47.0); HEMOGLOBIN 12.7 G/DL (12.0-16.0); MEAN CORPUSCULAR VOLUME 106 FL (80-99); PLATELET COUNT 103 K/UL (150-450); RED BLOOD COUNT 3.49 M/UL (4.20-5.40); RED CELL DISTRIBUTION WIDTH 13.1 % (11.6-14.8); WHITE BLOOD COUNT 9.4 K/UL (4.8-10.8)
[2019-02-24 06:10] LABS: ALANINE AMINOTRANSFERASE 26 U/L (12-78); ALBUMIN 2.9 G/DL (3.4-5.0); ALBUMIN/GLOBULIN RATIO 0.6 (1.0-2.7); ALKALINE PHOSPHATASE 98 U/L (46-116); ANION GAP 10 mmol/L (5-15); ASPARTATE AMINO TRANSFERASE 29 U/L (15-37); BILIRUBIN,TOTAL 0.5 MG/DL (0.2-1.0); BLOOD UREA NITROGEN 19 mg/dL (7-18); CALCIUM 8.7 MG/DL (8.5-10.1); CARBON DIOXIDE 26 MMOL/L (21-32); CHLORIDE 94 MMOL/L (98-107); CREATININE 0.5 MG/DL (0.55-1.30); POTASSIUM 4.7 MMOL/L (3.5-5.1); SODIUM 130 MMOL/L (136-145)
--- NOTE | 2019-02-24 07:33 | NUR ---
HAND-OFF: Report given to Hanna Finn RN. patient is in stable condition.
--- NOTE | 2019-02-24 07:34 | NUR ---
NURSE NOTES: Received patient in bed. Awake, verbally responsive. Able to make needs known, currently eating breakfast. Call light within reach. Will continue plan of care.
[2019-02-24 08:00] VITALS: BP 158/95
[2019-02-24] MEDS: Docusate 100mg cap ORAL SCH ×5 (09:00→17:28)
[2019-02-24] MEDS: Sertraline 50mg tab ORAL SCH (09:10)
[2019-02-24] MEDS: Doxycycline Monohydrate 100mg ORAL SCH ×2 (09:10→20:33)
[2019-02-24] MEDS: cefTRIAXone 1 GM in D5W 55 ML IVPB SCH (09:11)
[2019-02-24] MEDS: Thiamine 100mg tab ORAL SCH (09:11)
[2019-02-24] MEDS: Carvedilol 12.5mg tab ORAL SCH (09:11)
--- NOTE | 2019-02-24 10:35 | NUR ---
TRANSFER TO FLOOR: Patient transferred to Med Surg room 408-2, per Dr. Fontanez. Report given to Brent Wright RN. Belongings given to Brent Wright RN. Patient remains room air
--- NOTE | 2019-02-24 10:39 | NUR ---
NURSE NOTES: patient was transferred from [facility], placed in room 408-2 under Huseyin Carlson. received report from CECILIO Luna. alert. oriented.verbally responsive. no respiratory distress on room air. no c/o pain at this time. PICC line on JESSICA patent. intact. dressing clean.inserted on 02/23/2019. checked and counted belongings with patient.fall risk. yellow socks provided. informed patient call nursing staff for assist to the bathroom. bed in the lowest position and locked. call light within reach. alarm on. will continue to provide plan of care.
--- NOTE | 2019-02-24 10:46 | NUR ---
*-* INSURANCE *-* ALL CLINICALS AND REVIEWS HAVE BEEN FAXED TO: [facility] [employer] [facility] or Ref# yet # [phone] fax#[phone]
--- NOTE | 2019-02-24 11:03 | Nephrology Progress Note ---
Assessment/Plan Problem List: (1) UTI (urinary tract infection) (2) Anemia (3) Electrolyte imbalance Assessment HTN Respiratory distress Hypokalemia Low mag Low folate UTI (urinary tract infection) Plan K and Mag Phos supplement as needed antibiotics adjust BP meds urine tox screen negative per orders Objective Objective Last 24 Hour Vital Signs Date Time Temp Pulse Resp B/P (MAP) Pulse Ox O2 Delivery O2 Flow Rate FiO2 02/24/19 09:11 82 158/95 02/24/19 08:41 82 19 100 Room Air 21 78 17 99 02/24/19 08:00 97.9 87 21 158/95 (116) 97 02/24/19 08:00 Room Air 02/24/19 07:52 98 02/24/19 04:00 Room Air 02/24/19 04:00 97.5 76 22 148/92 (110) 96 02/24/19 04:00 75 02/24/19 00:00 78 02/24/19 00:00 98.3 73 24 149/86 (107) 96 02/24/19 00:00 Room Air 02/23/19 21:39 87 158/89 02/23/19 20:40 95 Nasal Cannula 2.0 28 02/23/19 20:00 Room Air 02/23/19 20:00 98.8 88 24 158/89 (112) 97 02/23/19 20:00 87 02/23/19 17:33 98.6 02/23/19 16:25 104 18 98 Room Air 21 96 20 95 02/23/19 16:00 93 02/23/19 16:00 2.0 02/23/19 16:00 Nasal Cannula 2.0 02/23/19 16:00 98.8 102 20 159/92 (114) 96 02/23/19 12:00 98.5 95 20 154/83 (106) 96 02/23/19 12:00 2.0 02/23/19 12:00 91 02/23/19 12:00 Nasal Cannula 2.0 Intake and Output 02/23/19 02/24/19 19:00 07:00 Intake Total 755 ml 720 ml Balance 755 ml 720 ml Intake Oral 500 ml 720 ml IV Total 255 ml # Voids 4 5 # Bowel Movements 4 Laboratory Tests 02/23/19 23:00: Urine Opiates Screen Negative, Urine Barbiturates Screen Negative, Phencyclidine (PCP) Screen Negative, Urine Amphetamines Screen Negative, Urine Benzodiazepines Screen Negative, Urine Cocaine Screen Negative, Urine Marijuana (THC) Screen Negative 02/24/19 04:15: White Blood Count 9.4, Red Blood Count 3.49L, Hemoglobin 12.7, Hematocrit 36.9L , Mean Corpuscular Volume 106H, Mean Corpuscular Hemoglobin 36.4H, Mean Corpuscular Hemoglobin Concent 34.4, Red Cell Distribution Width 13.1, Platelet Count 103L, Mean Platelet Volume 7.7, Neutrophils (%) (Auto) , Lymphocytes (%) ( Auto) , Monocytes (%) (Auto) , Eosinophils (%) (Auto) , Basophils (%) (Auto) , Sodium Level 130L, Potassium Level 4.7, Chloride Level 94L, Carbon Dioxide Level 26, Anion Gap 10, Blood Urea Nitrogen 19H, Creatinine 0.5L, Estimat Glomerular Filtration Rate > 60, Glucose Level 128H, Uric Acid 4.9, Calcium Level 8.7, Phosphorus Level 2.0L, Magnesium Level 1.8, Total Bilirubin 0.5, Aspartate Amino Transf (AST/SGOT) 29, Alanine Aminotransferase (ALT/SGPT) 26, Alkaline Phosphatase 98, C-Reactive Protein, Quantitative 37.6H, Pro-B-Type Natriuretic Peptide 3402H, Total Protein 7.4, Albumin 2.9L, Globulin 4.5, Albumin/Globulin Ratio 0.6L Height (Feet): 5 Height (Inches): 8.00 Weight (Pounds): 142 Loco Menjivar MD Feb 24, 2019 11:03
--- NOTE | 2019-02-24 11:34 | General Progress Note ---
Assessment/Plan Problem List: (1) Dizziness ICD Codes: R42 - Dizziness and giddiness SNOMED: 919998957, 684248658 (2) UTI (urinary tract infection) ICD Codes: N39.0 - Urinary tract infection, site not specified SNOMED: 39835922 (3) Hypokalemia ICD Codes: E87.6 - Hypokalemia SNOMED: 95962672, 922406532 (4) Anemia ICD Codes: D64.9 - Anemia, unspecified SNOMED: 140269093, 809544555 (5) Electrolyte imbalance ICD Codes: E87.8 - Other disorders of electrolyte and fluid balance, not elsewhere classified SNOMED: 578237915 Status: stable, progressing Assessment/Plan: anxious history of substance abuse no sob no cp reviewed chart and labs abx per id afebrile Subjective ROS Limited/Unobtainable: Yes Allergies: Coded Allergies: CODEINE (Verified Allergy, Unknown, 09/15/17) Objective Last 24 Hour Vital Signs Date Time Temp Pulse Resp B/P (MAP) Pulse Ox O2 Delivery O2 Flow Rate FiO2 02/24/19 09:11 82 158/95 02/24/19 08:41 82 19 100 Room Air 21 78 17 99 02/24/19 08:00 97.9 87 21 158/95 (116) 97 02/24/19 08:00 Room Air 02/24/19 07:52 98 02/24/19 04:00 Room Air 02/24/19 04:00 97.5 76 22 148/92 (110) 96 02/24/19 04:00 75 02/24/19 00:00 78 02/24/19 00:00 98.3 73 24 149/86 (107) 96 02/24/19 00:00 Room Air 02/23/19 21:39 87 158/89 02/23/19 20:40 95 Nasal Cannula 2.0 28 02/23/19 20:00 Room Air 02/23/19 20:00 98.8 88 24 158/89 (112) 97 02/23/19 20:00 87 02/23/19 17:33 98.6 02/23/19 16:25 104 18 98 Room Air 21 96 20 95 02/23/19 16:00 93 02/23/19 16:00 2.0 02/23/19 16:00 Nasal Cannula 2.0 02/23/19 16:00 98.8 102 20 159/92 (114) 96 02/23/19 12:00 98.5 95 20 154/83 (106) 96 02/23/19 12:00 2.0 02/23/19 12:00 91 02/23/19 12:00 Nasal Cannula 2.0 Intake and Output 02/23/19 02/24/19 19:00 07:00 Intake Total 755 ml 720 ml Balance 755 ml 720 ml Intake Oral 500 ml 720 ml IV Total 255 ml # Voids 4 5 # Bowel Movements 4 Laboratory Tests 02/23/19 23:00: Urine Opiates Screen Negative, Urine Barbiturates Screen Negative, Phencyclidine (PCP) Screen Negative, Urine Amphetamines Screen Negative, Urine Benzodiazepines Screen Negative, Urine Cocaine Screen Negative, Urine Marijuana (THC) Screen Negative 02/24/19 04:15: White Blood Count 9.4, Red Blood Count 3.49L, Hemoglobin 12.7, Hematocrit 36.9L , Mean Corpuscular Volume 106H, Mean Corpuscular Hemoglobin 36.4H, Mean Corpuscular Hemoglobin Concent 34.4, Red Cell Distribution Width 13.1, Platelet Count 103L, Mean Platelet Volume 7.7, Neutrophils (%) (Auto) , Lymphocytes (%) ( Auto) , Monocytes (%) (Auto) , Eosinophils (%) (Auto) , Basophils (%) (Auto) , Sodium Level 130L, Potassium Level 4.7, Chloride Level 94L, Carbon Dioxide Level 26, Anion Gap 10, Blood Urea Nitrogen 19H, Creatinine 0.5L, Estimat Glomerular Filtration Rate > 60, Glucose Level 128H, Uric Acid 4.9, Calcium Level 8.7, Phosphorus Level 2.0L, Magnesium Level 1.8, Total Bilirubin 0.5, Aspartate Amino Transf (AST/SGOT) 29, Alanine Aminotransferase (ALT/SGPT) 26, Alkaline Phosphatase 98, C-Reactive Protein, Quantitative 37.6H, Pro-B-Type Natriuretic Peptide 3402H, Total Protein 7.4, Albumin 2.9L, Globulin 4.5, Albumin/Globulin Ratio 0.6L Height (Feet): 5 Height (Inches): 8.00 Weight (Pounds): 142 Neck: supple Cardiovascular: normal rate Respiratory/Chest: lungs clear Arslan Fontanez MD Feb 24, 2019 11:34
[2019-02-24 12:00] VITALS: BP 120/67
[2019-02-24] MEDS: Phospha 250 Neutral tab ORAL SCH ×2 (12:03→17:25)
[2019-02-24] MEDS ORDERED: Solu-MEDROL 40mg Inj IVP SCH (14:00)
--- NOTE | 2019-02-24 15:37 | Infectious Diseases Prog Note ---
Assessment/Plan Assessment/Plan IMPRESSION: COPD exacerbation. Bacteriuria, UTI leukocytosis, hepatitis C, hypokalemia, thrombocytopenia, alcoholic fatty liver nicotine dependence. RECOMMENDATION: We will continue with ceftriaxone and doxycycline Subjective ROS Limited/Unobtainable: No Constitutional: Reports: no symptoms, other - beter Respiratory: Reports: shortness of breath, productive cough Genitourinary: Reports: other - urinary incontinence Allergies: Coded Allergies: CODEINE (Verified Allergy, Unknown, 09/15/17) Objective Vital Signs Last 24 Hour Vital Signs Date Time Temp Pulse Resp B/P (MAP) Pulse Ox O2 Delivery O2 Flow Rate FiO2 02/24/19 12:00 98.9 76 20 120/67 (84) 98 02/24/19 09:11 82 158/95 02/24/19 08:41 82 19 100 Room Air 21 78 17 99 02/24/19 08:00 97.9 87 21 158/95 (116) 97 02/24/19 08:00 Room Air 02/24/19 07:52 98 02/24/19 04:00 Room Air 02/24/19 04:00 97.5 76 22 148/92 (110) 96 02/24/19 04:00 75 02/24/19 00:00 78 02/24/19 00:00 98.3 73 24 149/86 (107) 96 02/24/19 00:00 Room Air 02/23/19 21:39 87 158/89 02/23/19 20:40 95 Nasal Cannula 2.0 28 02/23/19 20:00 Room Air 02/23/19 20:00 98.8 88 24 158/89 (112) 97 02/23/19 20:00 87 02/23/19 17:33 98.6 02/23/19 16:25 104 18 98 Room Air 21 96 20 95 02/23/19 16:00 93 02/23/19 16:00 2.0 02/23/19 16:00 Nasal Cannula 2.0 02/23/19 16:00 98.8 102 20 159/92 (114) 96 Height (Feet): 5 Height (Inches): 8.00 Weight (Pounds): 142 General Appearance: no acute distress HEENT: mucous membranes moist Respiratory/Chest: rhonchi - bilaterally Cardiovascular: normal rate, other - left arm PICC line Abdomen: soft, non tender Extremities: no edema Neurologic/Psychiatric: alert, oriented x 3, responsive Microbiology Date/Time Source Procedure Growth Status 02/22/19 10:10 Blood Blood Culture - Preliminary NO GROWTH AFTER 24 HOURS Resulted 02/22/19 10:00 Blood Blood Culture - Preliminary NO GROWTH AFTER 24 HOURS Resulted 02/22/19 10:00 Nasal Nares - Final Complete 02/22/19 10:00 Nasal Nares - Final Complete 02/22/19 11:50 Urine,Clean Catch Urine Culture - Final Klebsiella Pneumoniae Complete Laboratory Tests Test 02/23/19 23:00 02/24/19 04:15 Urine Opiates Screen Negative (NEGATIVE) Urine Barbiturates Screen Negative (NEGATIVE) Phencyclidine (PCP) Screen Negative (NEGATIVE) Urine Amphetamines Screen Negative (NEGATIVE) Urine Benzodiazepines Screen Negative (NEGATIVE) Urine Cocaine Screen Negative (NEGATIVE) Urine Marijuana (THC) Screen Negative (NEGATIVE) White Blood Count 9.4 K/UL (4.8-10.8) Red Blood Count 3.49 M/UL (4.20-5.40) L Hemoglobin 12.7 G/DL (12.0-16.0) Hematocrit 36.9 % (37.0-47.0) L Mean Corpuscular Volume 106 FL (80-99) H Mean Corpuscular Hemoglobin 36.4 PG (27.0-31.0) H Mean Corpuscular Hemoglobin Concent 34.4 G/DL (32.0-36.0) Red Cell Distribution Width 13.1 % (11.6-14.8) Platelet Count 103 K/UL (150-450) L Mean Platelet Volume 7.7 FL (6.5-10.1) Neutrophils (%) (Auto) % (45.0-75.0) Lymphocytes (%) (Auto) % (20.0-45.0) Monocytes (%) (Auto) % (1.0-10.0) Eosinophils (%) (Auto) % (0.0-3.0) Basophils (%) (Auto) % (0.0-2.0) Sodium Level 130 MMOL/L (136-145) L Potassium Level 4.7 MMOL/L (3.5-5.1) Chloride Level 94 MMOL/L (98-107) L Carbon Dioxide Level 26 MMOL/L (21-32) Anion Gap 10 mmol/L (5-15) Blood Urea Nitrogen 19 mg/dL (7-18) H Creatinine 0.5 MG/DL (0.55-1.30) L Estimat Glomerular Filtration Rate > 60 mL/min (>60) Glucose Level 128 MG/DL (74-106) H Uric Acid 4.9 MG/DL (2.6-7.2) Calcium Level 8.7 MG/DL (8.5-10.1) Phosphorus Level 2.0 MG/DL (2.5-4.9) L Magnesium Level 1.8 MG/DL (1.8-2.4) Total Bilirubin 0.5 MG/DL (0.2-1.0) Aspartate Amino Transf (AST/SGOT) 29 U/L (15-37) Alanine Aminotransferase (ALT/SGPT) 26 U/L (12-78) Alkaline Phosphatase 98 U/L (46-116) C-Reactive Protein, Quantitative 37.6 mg/dL (0.00-0.90) H Pro-B-Type Natriuretic Peptide 3402 pg/mL (0-125) H Total Protein 7.4 G/DL (6.4-8.2) Albumin 2.9 G/DL (3.4-5.0) L Globulin 4.5 g/dL Albumin/Globulin Ratio 0.6 (1.0-2.7) L Current Medications Medications (Trade) Dose Ordered Sig/[place] Route PRN Reason Start Time Stop Time Status Last Admin Dose Admin Acetaminophen (Tylenol) 650 mg Q6H PRN ORAL Mild Pain/Temp > 100.5 02/24/19 10:50 03/24/19 10:49 Carvedilol (Coreg) 25 mg EVERY 12 HOURS ORAL 02/24/19 21:00 03/25/19 20:59 Ceftriaxone Sodium 1 gm/ Dextrose 55 ml @ 110 mls/hr Q24H IVPB 02/25/19 09:00 03/02/19 08:59 Chlorhexidine Gluconate (Heike-Hex 2%) 1 applic DAILY@2000 TOPIC 02/24/19 20:00 03/25/19 19:59 Docusate Sodium (Colace) 100 mg THREE TIMES A DAY ORAL 02/24/19 13:00 03/25/19 17:59 02/24/19 12:04 Doxycycline Monohydrate (Doxycycline Monohydrate) 100 mg EVERY 12 HOURS ORAL 02/24/19 21:00 03/01/19 20:59 Folic Acid (Folate) 5 mg DAILY ORAL 02/25/19 09:00 03/25/19 16:44 Gabapentin (Neurontin) 100 mg THREE TIMES A DAY ORAL 02/24/19 13:00 03/24/19 17:59 02/24/19 12:03 Ibuprofen (Motrin) 600 mg Q6H PRN ORAL For Pain 02/24/19 10:53 03/24/19 10:52 Levalbuterol HCl (Xopenex) 0.625 mg Q6HRT HHN 02/24/19 13:00 02/28/19 14:59 02/24/19 13:07 Methylprednisolone Sodium Succinate (Solu-MEDROL) 40 mg EVERY 8 HOURS IVP 02/24/19 14:00 03/24/19 21:59 02/24/19 13:44 Ondansetron HCl (Zofran) 4 mg Q8H PRN IVP Nausea & Vomiting 02/24/19 10:54 03/24/19 10:53 Pantoprazole (Protonix) 40 mg BID ORAL 02/24/19 18:00 03/24/19 14:44 Phosphorus (Phospha 250 Neutral) 250 mg THREE TIMES A DAY ORAL 02/24/19 13:00 03/26/19 12:59 02/24/19 12:03 Potassium Chloride (K-Dur) 20 meq TWICE A DAY ORAL 02/24/19 18:00 03/24/19 17:59 Sertraline HCl (Zoloft) 25 mg DAILY ORAL 02/25/19 09:00 03/25/19 08:59 Sodium Chloride 1,000 ml @ 50 mls/hr Q20H IV 02/24/19 11:00 03/26/19 10:59 02/24/19 12:01 Thiamine HCl (Vitamin B1) 100 mg DAILY ORAL 02/25/19 09:00 03/25/19 16:44 Zolpidem Tartrate (Ambien) 5 mg HSPRN PRN ORAL Insomnia 02/24/19 20:00 03/01/19 19:59 Gabe Everett MD Feb 24, 2019 15:37
--- NOTE | 2019-02-24 15:53 | Hematology/Onc Progress Note ---
Assessment/Plan Assessment/Plan Assessment and Recs: # Thrombocytopenia is likely related to underlying hepatitis, will obtain hepatitis panel --> hiv negative, hep c++ --> us of the abdomen shows cirrhosis and varices --> transfuse as needed --> outpatient hepatitis management as required --> plt rend: 103 # Leukocytosis r/o infection --> trend wbc as needed 11.5-->11-->9.4 --> on abx as needed --> continue on steriods --> abx: cetriaxone.doxycycline # Respiratory distress is likely 2/2 copd exacerbation --> breahting treatments on prn basis --> bipap on prn basis # Hypokalemia --> replete K as needed --> renal eval prn # UTI (urinary tract infection) --> s/p abx # Dvt ppx scds Appreciate consultation and dw Rn Subjective Allergies: Coded Allergies: CODEINE (Verified Allergy, Unknown, 09/15/17) Subjective 02/24: awake, transferred to med surg, urine cx positive, hep c positive Objective Objective Current Medications Medications (Trade) Dose Ordered Sig/[place] Route PRN Reason Start Time Stop Time Status Last Admin Dose Admin Acetaminophen (Tylenol) 650 mg Q6H PRN ORAL Mild Pain/Temp > 100.5 02/24/19 10:50 03/24/19 10:49 Carvedilol (Coreg) 25 mg EVERY 12 HOURS ORAL 02/24/19 21:00 03/25/19 20:59 Ceftriaxone Sodium 1 gm/ Dextrose 55 ml @ 110 mls/hr Q24H IVPB 02/25/19 09:00 03/02/19 08:59 Chlorhexidine Gluconate (Heike-Hex 2%) 1 applic DAILY@1999 TOPIC 02/24/19 20:00 03/25/19 19:59 Docusate Sodium (Colace) 100 mg THREE TIMES A DAY ORAL 02/24/19 13:00 03/25/19 17:59 02/24/19 12:04 Doxycycline Monohydrate (Doxycycline Monohydrate) 100 mg EVERY 12 HOURS ORAL 02/24/19 21:00 03/01/19 20:59 Folic Acid (Folate) 5 mg DAILY ORAL 02/25/19 09:00 03/25/19 16:44 Gabapentin (Neurontin) 100 mg THREE TIMES A DAY ORAL 02/24/19 13:00 03/24/19 17:59 02/24/19 12:03 Ibuprofen (Motrin) 600 mg Q6H PRN ORAL For Pain 02/24/19 10:53 03/24/19 10:52 Levalbuterol HCl (Xopenex) 0.625 mg Q6HRT HHN 02/24/19 13:00 02/28/19 14:59 02/24/19 13:07 Methylprednisolone Sodium Succinate (Solu-MEDROL) 40 mg EVERY 8 HOURS IVP 02/24/19 14:00 03/24/19 21:59 02/24/19 13:44 Ondansetron HCl (Zofran) 4 mg Q8H PRN IVP Nausea & Vomiting 02/24/19 10:54 03/24/19 10:53 Pantoprazole (Protonix) 40 mg BID ORAL 02/24/19 18:00 03/24/19 14:44 Phosphorus (Phospha 250 Neutral) 250 mg THREE TIMES A DAY ORAL 02/24/19 13:00 03/26/19 12:59 02/24/19 12:03 Potassium Chloride (K-Dur) 20 meq TWICE A DAY ORAL 02/24/19 18:00 03/24/19 17:59 Sertraline HCl (Zoloft) 25 mg DAILY ORAL 02/25/19 09:00 03/25/19 08:59 Sodium Chloride 1,000 ml @ 50 mls/hr Q20H IV 02/24/19 11:00 03/26/19 10:59 02/24/19 12:01 Thiamine HCl (Vitamin B1) 100 mg DAILY ORAL 02/25/19 09:00 03/25/19 16:44 Zolpidem Tartrate (Ambien) 5 mg HSPRN PRN ORAL Insomnia 02/24/19 20:00 03/01/19 19:59 Last 24 Hour Vital Signs Date Time Temp Pulse Resp B/P (MAP) Pulse Ox O2 Delivery O2 Flow Rate FiO2 02/24/19 12:00 98.9 76 20 120/67 (84) 98 02/24/19 09:11 82 158/95 02/24/19 08:41 82 19 100 Room Air 21 78 17 99 02/24/19 08:00 97.9 87 21 158/95 (116) 97 02/24/19 08:00 Room Air 02/24/19 07:52 98 02/24/19 04:00 Room Air 02/24/19 04:00 97.5 76 22 148/92 (110) 96 02/24/19 04:00 75 02/24/19 00:00 78 02/24/19 00:00 98.3 73 24 149/86 (107) 96 02/24/19 00:00 Room Air 02/23/19 21:39 87 158/89 02/23/19 20:40 95 Nasal Cannula 2.0 28 02/23/19 20:00 Room Air 02/23/19 20:00 98.8 88 24 158/89 (112) 97 02/23/19 20:00 87 02/23/19 17:33 98.6 02/23/19 16:25 104 18 98 Room Air 21 96 20 95 02/23/19 16:00 93 02/23/19 16:00 2.0 02/23/19 16:00 Nasal Cannula 2.0 02/23/19 16:00 98.8 102 20 159/92 (114) 96 02/23/19 12:00 98.5 95 20 154/83 (106) 96 02/23/19 12:00 2.0 02/23/19 12:00 91 02/23/19 12:00 Nasal Cannula 2.0 02/23/19 08:00 98.6 100 21 154/94 (114) 96 02/23/19 08:00 2.0 02/23/19 08:00 100 02/23/19 08:00 Nasal Cannula 2.0 02/23/19 07:37 96 Nasal Cannula 2.0 28 02/23/19 04:00 Nasal Cannula 2.0 02/23/19 04:00 98.5 114 28 152/73 (99) 96 02/23/19 04:00 2.0 02/23/19 04:00 100 02/23/19 00:00 99.2 107 26 153/85 (107) 96 02/23/19 00:00 Nasal Cannula 2.0 02/23/19 00:00 114 02/23/19 00:00 2.0 02/22/19 20:00 2.0 02/22/19 20:00 97.9 101 26 145/76 (99) 96 02/22/19 20:00 Nasal Cannula 2.0 02/22/19 20:00 96 Nasal Cannula 2.0 28 02/22/19 20:00 108 02/22/19 20:00 76 20 97 Nasal Cannula 2.0 28 70 20 94 02/22/19 19:00 2.0 28 02/22/19 16:38 98.1 02/22/19 16:00 97.9 111 16 132/83 (99) 98 02/22/19 16:00 96 02/22/19 16:00 2.0 Intake and Output 02/23/19 02/24/19 19:00 07:00 Intake Total 755 ml 720 ml Balance 755 ml 720 ml Intake Oral 500 ml 720 ml IV Total 255 ml # Voids 4 5 # Bowel Movements 4 Labs Test 02/22/19 10:00 02/22/19 10:50 02/22/19 11:50 02/22/19 16:00 White Blood Count 11.5 K/UL (4.8-10.8) Red Blood Count 3.17 M/UL (4.20-5.40) Hemoglobin 11.5 G/DL (12.0-16.0) Hematocrit 34.2 % (37.0-47.0) Mean Corpuscular Volume 108 FL (80-99) Mean Corpuscular Hemoglobin 36.2 PG (27.0-31.0) Mean Corpuscular Hemoglobin Concent 33.6 G/DL (32.0-36.0) Red Cell Distribution Width 13.6 % (11.6-14.8) Platelet Count 74 K/UL (150-450) Mean Platelet Volume 5.4 FL (6.5-10.1) Neutrophils (%) (Auto) % (45.0-75.0) Lymphocytes (%) (Auto) % (20.0-45.0) Monocytes (%) (Auto) % (1.0-10.0) Eosinophils (%) (Auto) % (0.0-3.0) Basophils (%) (Auto) % (0.0-2.0) Differential Total Cells Counted 100 Neutrophils % (Manual) 83 % (45-75) Lymphocytes % (Manual) 5 % (20-45) Monocytes % (Manual) 11 % (1-10) Eosinophils % (Manual) 1 % (0-3) Basophils % (Manual) 0 % (0-2) Band Neutrophils 0 % (0-8) Other Cell Type See comments Platelet Estimate Decreased Platelet Morphology Normal Macrocytosis 1+ Sodium Level 137 MMOL/L (136-145) Potassium Level 3.4 MMOL/L (3.5-5.1) Chloride Level 97 MMOL/L (98-107) Carbon Dioxide Level 18 MMOL/L (21-32) Anion Gap 22 mmol/L (5-15) Blood Urea Nitrogen 13 mg/dL (7-18) Creatinine 0.6 MG/DL (0.55-1.30) Estimat Glomerular Filtration Rate > 60 mL/min (>60) Glucose Level 62 MG/DL (74-106) Calcium Level 8.5 MG/DL (8.5-10.1) Total Bilirubin 0.8 MG/DL (0.2-1.0) Aspartate Amino Transf (AST/SGOT) 48 U/L (15-37) Alanine Aminotransferase (ALT/SGPT) 27 U/L (12-78) Alkaline Phosphatase 91 U/L (46-116) Troponin I 0.000 ng/mL (0.000-0.056) Pro-B-Type Natriuretic Peptide 1247 pg/mL (0-125) Total Protein 7.5 G/DL (6.4-8.2) Albumin 3.2 G/DL (3.4-5.0) Globulin 4.3 g/dL Albumin/Globulin Ratio 0.7 (1.0-2.7) HIV (1&2) Antibody Rapid Negative (NEGATIVE) Arterial Blood pH 7.372 (7.350-7.450) Arterial Blood Partial Pressure CO2 30.0 mmHg (35.0-45.0) Arterial Blood Partial Pressure O2 187.6 mmHg (75.0-100.0) Arterial Blood HCO3 17.0 mmol/L (22.0-26.0) Arterial Blood Oxygen Saturation 99.1 % (95-100) Arterial Blood Base Excess -7.0 (-2-2) Akshat Test Positive Urine Color Pale yellow Urine Appearance Clear Urine pH 5 (4.5-8.0) Urine Specific [place] 1.015 (1.005-1.035) Urine Protein 2+ (NEGATIVE) Urine Glucose (UA) Negative (NEGATIVE) Urine Ketones 4+ (NEGATIVE) Urine Blood 5+ (NEGATIVE) Urine Nitrite Negative (NEGATIVE) Urine Bilirubin Negative (NEGATIVE) Urine Urobilinogen Normal MG/DL (0.0-1.0) Urine Leukocyte Esterase 3+ (NEGATIVE) Urine RBC 10-15 /HPF (0 - 2) Urine WBC 10-15 /HPF (0 - 2) Urine Squamous Epithelial Cells Few /LPF (NONE/OCC) Urine Bacteria Few /HPF (NONE) Prothrombin Time 10.0 SEC (9.30-11.50) Prothromb Time International Ratio 0.9 (0.9-1.1) Iron Level 29 ug/dL (50-175) Total Iron Binding Capacity 241 ug/dL (250-450) Percent Iron Saturation 12 % (15-50) Unsaturated Iron Binding 212 ug/dL (112-346) Ferritin 279 NG/ML (8-388) Carcinoembryonic Antigen 5.4 ng/mL (0.0-4.7) Hepatitis A IgM Antibody Negative (Negative) Hepatitis B Surface Antigen Negative (Negative) Hepatitis B Core IgM Antibody Negative (Negative) Hepatitis C Antibody >11.0 s/co ratio Test 02/23/19 03:40 02/23/19 23:00 02/24/19 04:15 White Blood Count 11.0 K/UL (4.8-10.8) 9.4 K/UL (4.8-10.8) Red Blood Count 3.35 M/UL (4.20-5.40) 3.49 M/UL (4.20-5.40) Hemoglobin 12.2 G/DL (12.0-16.0) 12.7 G/DL (12.0-16.0) Hematocrit 36.1 % (37.0-47.0) 36.9 % (37.0-47.0) Mean Corpuscular Volume 108 FL (80-99) 106 FL (80-99) Mean Corpuscular Hemoglobin 36.4 PG (27.0-31.0) 36.4 PG (27.0-31.0) Mean Corpuscular Hemoglobin Concent 33.7 G/DL (32.0-36.0) 34.4 G/DL (32.0-36.0) Red Cell Distribution Width 13.6 % (11.6-14.8) 13.1 % (11.6-14.8) Platelet Count 84 K/UL (150-450) 103 K/UL (150-450) Mean Platelet Volume 7.2 FL (6.5-10.1) 7.7 FL (6.5-10.1) Neutrophils (%) (Auto) % (45.0-75.0) % (45.0-75.0) Lymphocytes (%) (Auto) % (20.0-45.0) % (20.0-45.0) Monocytes (%) (Auto) % (1.0-10.0) % (1.0-10.0) Eosinophils (%) (Auto) % (0.0-3.0) % (0.0-3.0) Basophils (%) (Auto) % (0.0-2.0) % (0.0-2.0) Differential Total Cells Counted 100 Neutrophils % (Manual) 94 % (45-75) Lymphocytes % (Manual) 2 % (20-45) Monocytes % (Manual) 4 % (1-10) Eosinophils % (Manual) 0 % (0-3) Basophils % (Manual) 0 % (0-2) Band Neutrophils 0 % (0-8) Platelet Estimate Adequate Platelet Morphology Normal Anisocytosis 1+ Macrocytosis 1+ Sodium Level 134 MMOL/L (136-145) 130 MMOL/L (136-145) Potassium Level 3.9 MMOL/L (3.5-5.1) 4.7 MMOL/L (3.5-5.1) Chloride Level 97 MMOL/L (98-107) 94 MMOL/L (98-107) Carbon Dioxide Level 21 MMOL/L (21-32) 26 MMOL/L (21-32) Anion Gap 16 mmol/L (5-15) 10 mmol/L (5-15) Blood Urea Nitrogen 19 mg/dL (7-18) 19 mg/dL (7-18) Creatinine 0.5 MG/DL (0.55-1.30) 0.5 MG/DL (0.55-1.30) Estimat Glomerular Filtration Rate > 60 mL/min (>60) > 60 mL/min (>60) Glucose Level 139 MG/DL (74-106) 128 MG/DL (74-106) Calcium Level 9.0 MG/DL (8.5-10.1) 8.7 MG/DL (8.5-10.1) Phosphorus Level 2.5 MG/DL (2.5-4.9) 2.0 MG/DL (2.5-4.9) Magnesium Level 1.4 MG/DL (1.8-2.4) 1.8 MG/DL (1.8-2.4) Total Bilirubin 0.6 MG/DL (0.2-1.0) 0.5 MG/DL (0.2-1.0) Gamma Glutamyl Transpeptidase 41 U/L (5-85) Aspartate Amino Transf (AST/SGOT) 38 U/L (15-37) 29 U/L (15-37) Alanine Aminotransferase (ALT/SGPT) 27 U/L (12-78) 26 U/L (12-78) Alkaline Phosphatase 99 U/L (46-116) 98 U/L (46-116) C-Reactive Protein, Quantitative 49.2 mg/dL (0.00-0.90) 37.6 mg/dL (0.00-0.90) Pro-B-Type Natriuretic Peptide 2018 pg/mL (0-125) 3402 pg/mL (0-125) Total Protein 7.7 G/DL (6.4-8.2) 7.4 G/DL (6.4-8.2) Albumin 2.9 G/DL (3.4-5.0) 2.9 G/DL (3.4-5.0) Globulin 4.8 g/dL 4.5 g/dL Albumin/Globulin Ratio 0.6 (1.0-2.7) 0.6 (1.0-2.7) Vitamin B12 Level 467 PG/ML (193-986) Folate 4.9 NG/ML (8.6-58.9) Thyroid Stimulating Hormone (TSH) 0.502 uiU/mL (0.358-3.740) Urine Opiates Screen Negative (NEGATIVE) Urine Barbiturates Screen Negative (NEGATIVE) Phencyclidine (PCP) Screen Negative (NEGATIVE) Urine Amphetamines Screen Negative (NEGATIVE) Urine Benzodiazepines Screen Negative (NEGATIVE) Urine Cocaine Screen Negative (NEGATIVE) Urine Marijuana (THC) Screen Negative (NEGATIVE) Uric Acid 4.9 MG/DL (2.6-7.2) Height (Feet): 5 Height (Inches): 8.00 Weight (Pounds): 142 Objective Physical Exam Gen: alert, severe distress HEENT: normal ENT inspection, hearing grossly sarina Resp: respiratory distress, decreased breath sounds, accessory muscle use ++ Cardiovascular: RRR, no mgr GI: normal inspection, normal bowel sounds, non tender, soft, no guarding, no hernia Genitourinary: no CVA tenderness Musculoskeletal: normal inspection, back normal, normal range of motion Dimitris Sarabia MD Feb 24, 2019 15:53
[2019-02-24 16:00] VITALS: BP 152/103
--- NOTE | 2019-02-24 16:30 | NUR ---
NURSE NOTES: Patient seen by Dr. Mansfield. received fluid restriction order 1 liter /day. Patient refusing IV fluid @50/hr. the patient eats and drinks. Notified Dr. Fontanez and waiting further order.
--- NOTE | 2019-02-24 18:28 | NUR ---
NURSE NOTES: received order from Huseyin Carlson. DC NS@50/hr. order noted and carried out.
--- NOTE | 2019-02-24 19:20 | NUR ---
HAND-OFF: Report given to CECILIO Dunn.
--- NOTE | 2019-02-24 19:25 | NUR ---
NURSE NOTES: Pt. received from CECILIO Kennedy. Pt. AAOx4, on room air, no complaints of pain at this time. No shortness of breath, slight cough noted, will continue plan of care. PICC left upper arm patent, dressing clean, dry, and intact; no IV fluids running at this time. Pt. is on 1L/day fluid restrictions, will monitor. Bed is low and locked, side rails x2 up, and call light is in reach. Will continue to monitor.
[2019-02-24 20:00] VITALS: BP 144/98
[2019-02-24] MEDS ORDERED: Zolpidem 5mg tab ORAL PRN (20:00)
[2019-02-24] MEDS ORDERED: Dyna-Hex 2% Top Sol 2oz TOPIC SCH (20:00)
[2019-02-24] MEDS: Carvedilol 25mg Tab ORAL SCH (20:32)
[2019-02-24] MEDS ORDERED: Carvedilol 12.5mg tab ORAL SCH (21:00)
--- NOTE | 2019-02-24 21:27 | Pulmonology Progress Note ---
Assessment/Plan Assessment/Plan Pulmonary Progress Note Patient is a 54 year old woman with a past history of Chronic Obstructive Pulmonary Disease, Hepatitis B. Patient had flulike symptoms for last few days and then today developed acute onset of cough congestion shortness of breath. Maintenance treatment for COPD PRN Albuterol LE Dupplex negative for DVT, less SOB, no new complaints Allergies: CODEINE Past Medical History: Chronic Obstructive Pulmonary Disease, Hepatitis B, Substance abuse Social History: Reports: smoking; Denies: alcohol use, drug use All Other Systems: negative except mentioned in HPI Physical Exam Vital Signs Noted General Appearance: alert, comfortable on NC O2, less anxious Head: atraumatic Eyes: bilateral eye normal inspection ENT: normal ENT inspection, moist mm Neck: normal inspection, full range of motion, no LN Respiratory: respiratory distress, decreased breath sounds Cardiovascular: no edema, tachycardia, HS1, HS2 normal Gastrointestinal: normal inspection, normal bowel sounds, non tender, soft, no guarding, no hernia Genitourinary: no CVA tenderness Musculoskeletal: normal inspection, back normal, normal range of motion Neurologic: alert, responsive, speech normal, normal inspection Skin: no rash Impression: Chronic Obstructive Pulmonary Disease exacerbation Bronchitis Hepatitis B Fatty liver on Abdominal US Respiratory distress Hypokalemia Possible urinary tract infection Thrombocytopenia Plan - IV Solumedrol wean as tolerated - HHN - O2 PRN - BiPAP PRN - PO Doxycycline - May need diuresis given increased NPAe PRN - PPX - 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0) Basophils (%) (Auto) % (0.0-2.0) Differential Total Cells Counted 100 Neutrophils % (Manual) 83 % (45-75) Lymphocytes % (Manual) 5 % (20-45) Monocytes % (Manual) 11 % (1-10) Eosinophils % (Manual) 1 % (0-3) Basophils % (Manual) 0 % (0-2) Band Neutrophils 0 % (0-8) Platelet Estimate Decreased Platelet Morphology Normal Macrocytosis 1+ Sodium Level 137 MMOL/L (136-145) Potassium Level 3.4 MMOL/L (3.5-5.1) Chloride Level 97 MMOL/L (98-107) Carbon Dioxide Level 18 MMOL/L (21-32) Anion Gap 22 mmol/L (5-15) Blood Urea Nitrogen 13 mg/dL (7-18) Creatinine 0.6 MG/DL (0.55-1.30) Estimat Glomerular Filtration Rate > 60 mL/min (>60) Glucose Level 62 MG/DL (74-106) Calcium Level 8.5 MG/DL (8.5-10.1) Total Bilirubin 0.8 MG/DL (0.2-1.0) Aspartate Amino Transf (AST/SGOT) 48 U/L (15-37) Alanine Aminotransferase (ALT/SGPT) 27 U/L (12-78) Alkaline Phosphatase 91 U/L (46-116) Troponin I 0.000 ng/mL (0.000-0.056) Pro-B-Type Natriuretic Peptide 1247 pg/mL (0-125) Total Protein 7.5 G/DL (6.4-8.2) Albumin 3.2 G/DL (3.4-5.0) Globulin 4.3 g/dL Albumin/Globulin Ratio 0.7 (1.0-2.7) Arterial Blood pH 7.372 (7.350-7.450) Arterial Blood Partial Pressure CO2 30.0 mmHg (35.0-45.0) Arterial Blood Partial Pressure O2 187.6 mmHg (75.0-100.0) Arterial Blood HCO3 17.0 mmol/L (22.0-26.0) Arterial Blood Oxygen Saturation 99.1 % (95-100) Arterial Blood Base Excess -7.0 (-2-2) Akshat Test Positive Urine Color Pale yellow Urine Appearance Clear Urine pH 5 (4.5-8.0) Urine Specific [place] 1.015 (1.005-1.035) Urine Protein 2+ (NEGATIVE) Urine Glucose (UA) Negative (NEGATIVE) Urine Ketones 4+ (NEGATIVE) Urine Blood 5+ (NEGATIVE) Urine Nitrite Negative (NEGATIVE) Urine Bilirubin Negative (NEGATIVE) Urine Urobilinogen Normal MG/DL (0.0-1.0) Urine Leukocyte Esterase 3+ (NEGATIVE) Urine RBC 10-15 /HPF (0 - 2) Urine WBC 10-15 /HPF (0 - 2) Urine Squamous Epithelial Cells Few /LPF (NONE/OCC) Urine Bacteria Few /HPF (NONE) EKG Diagnostic Results Rate: tachycardiac Rhythm: NSR ST Segments: no acute changes Chest X-Ray Ordered: no consolidation, no effusion, no pneumothorax, no acute cardiopulmonary disease LE Dupplex:No DVT Subjective ROS Limited/Unobtainable: No Allergies: Coded Allergies: CODEINE (Verified Allergy, Unknown, 09/15/17) Objective Last 24 Hour Vital Signs Date Time Temp Pulse Resp B/P (MAP) Pulse Ox O2 Delivery O2 Flow Rate FiO2 02/24/19 20:32 79 144/98 02/24/19 19:18 100 22 100 Room Air 21 99 20 86 02/24/19 19:18 98 Room Air 21 02/24/19 16:00 98.0 80 19 152/103 (119) 96 02/24/19 12:00 98.9 76 20 120/67 (84) 98 02/24/19 09:11 82 158/95 02/24/19 08:41 82 19 100 Room Air 21 78 17 99 02/24/19 08:00 97.9 87 21 158/95 (116) 97 02/24/19 08:00 Room Air 02/24/19 07:52 98 02/24/19 04:00 Room Air 02/24/19 04:00 97.5 76 22 148/92 (110) 96 02/24/19 04:00 75 02/24/19 00:00 78 02/24/19 00:00 98.3 73 24 149/86 (107) 96 02/24/19 00:00 Room Air 02/23/19 21:39 87 158/89 Intake and Output 02/23/19 02/24/19 19:00 07:00 Intake Total 755 ml 720 ml Balance 755 ml 720 ml Intake Oral 500 ml 720 ml IV Total 255 ml # Voids 4 5 # Bowel Movements 4 Microbiology Date/Time Source Procedure Growth Status 02/22/19 10:10 Blood Blood Culture - Preliminary NO GROWTH AFTER 24 HOURS Resulted 02/22/19 10:00 Blood Blood Culture - Preliminary NO GROWTH AFTER 24 HOURS Resulted 02/22/19 10:00 Nasal Nares - Final Complete 02/22/19 10:00 Nasal Nares - Final Complete 02/22/19 11:50 Urine,Clean Catch Urine Culture - Final Klebsiella Pneumoniae Complete Laboratory Tests 02/23/19 23:00: Urine Opiates Screen Negative, Urine Barbiturates Screen Negative, Phencyclidine (PCP) Screen Negative, Urine Amphetamines Screen Negative, Urine Benzodiazepines Screen Negative, Urine Cocaine Screen Negative, Urine Marijuana (THC) Screen Negative 02/24/19 04:15: White Blood Count 9.4, Red Blood Count 3.49L, Hemoglobin 12.7, Hematocrit 36.9L , Mean Corpuscular Volume 106H, Mean Corpuscular Hemoglobin 36.4H, Mean Corpuscular Hemoglobin Concent 34.4, Red Cell Distribution Width 13.1, Platelet Count 103L, Mean Platelet Volume 7.7, Neutrophils (%) (Auto) , Lymphocytes (%) ( Auto) , Monocytes (%) (Auto) , Eosinophils (%) (Auto) , Basophils (%) (Auto) , Sodium Level 130L, Potassium Level 4.7, Chloride Level 94L, Carbon Dioxide Level 26, Anion Gap 10, Blood Urea Nitrogen 19H, Creatinine 0.5L, Estimat Glomerular Filtration Rate > 60, Glucose Level 128H, Uric Acid 4.9, Calcium Level 8.7, Phosphorus Level 2.0L, Magnesium Level 1.8, Total Bilirubin 0.5, Aspartate Amino Transf (AST/SGOT) 29, Alanine Aminotransferase (ALT/SGPT) 26, Alkaline Phosphatase 98, C-Reactive Protein, Quantitative 37.6H, Pro-B-Type Natriuretic Peptide 3402H, Total Protein 7.4, Albumin 2.9L, Globulin 4.5, Albumin/Globulin Ratio 0.6L Current Medications Medications (Trade) Dose Ordered Sig/Modesta Route PRN Reason Start Time Stop Time Status Last Admin Dose Admin Acetaminophen (Tylenol) 650 mg Q6H PRN ORAL Mild Pain/Temp > 100.5 02/24/19 10:50 03/24/19 10:49 02/24/19 20:35 Carvedilol (Coreg) 25 mg EVERY 12 HOURS ORAL 02/24/19 21:00 03/25/19 20:59 02/24/19 20:32 Ceftriaxone Sodium 1 gm/ Dextrose 55 ml @ 110 mls/hr Q24H IVPB 02/25/19 09:00 03/02/19 08:59 Chlorhexidine Gluconate (Heike-Hex 2%) 1 applic DAILY@2000 TOPIC 02/24/19 20:00 03/25/19 19:59 02/24/19 20:32 Docusate Sodium (Colace) 100 mg THREE TIMES A DAY ORAL 02/24/19 13:00 03/25/19 17:59 02/24/19 12:04 Doxycycline Monohydrate (Doxycycline Monohydrate) 100 mg EVERY 12 HOURS ORAL 02/24/19 21:00 03/01/19 20:59 02/24/19 20:33 Folic Acid (Folate) 5 mg DAILY ORAL 02/25/19 09:00 03/25/19 16:44 Gabapentin (Neurontin) 100 mg THREE TIMES A DAY ORAL 02/24/19 13:00 03/24/19 17:59 02/24/19 17:25 Ibuprofen (Motrin) 600 mg Q6H PRN ORAL For Pain 02/24/19 10:53 03/24/19 10:52 Levalbuterol HCl (Xopenex) 0.625 mg Q6HRT HHN 02/24/19 13:00 02/28/19 14:59 02/24/19 19:18 Methylprednisolone Sodium Succinate (Solu-MEDROL) 40 mg Q12HR IVP 02/24/19 21:00 03/24/19 21:59 02/24/19 20:47 Nicotine (Nicoderm) 1 patch Q24H TDERMAL 02/24/19 18:00 03/26/19 17:59 02/24/19 17:26 Ondansetron HCl (Zofran) 4 mg Q8H PRN IVP Nausea & Vomiting 02/24/19 10:54 03/24/19 10:53 Pantoprazole (Protonix) 40 mg BID ORAL 02/24/19 18:00 03/24/19 14:44 02/24/19 17:25 Phosphorus (Phospha 250 Neutral) 250 mg THREE TIMES A DAY ORAL 02/24/19 13:00 03/26/19 12:59 02/24/19 17:25 Potassium Chloride (K-Dur) 20 meq TWICE A DAY ORAL 02/24/19 18:00 03/24/19 17:59 02/24/19 17:25 Sertraline HCl (Zoloft) 25 mg DAILY ORAL 02/25/19 09:00 03/25/19 08:59 Thiamine HCl (Vitamin B1) 100 mg DAILY ORAL 02/25/19 09:00 03/25/19 16:44 Zolpidem Tartrate (Ambien) 5 mg HSPRN PRN ORAL Insomnia 02/24/19 20:00 03/01/19 19:59 02/24/19 20:34 Minh Mansfield MD Feb 24, 2019 21:27
[2019-02-25] VITALS: BP 128/93
[2019-02-25] MEDS: Levalbuterol Inh UD 1.25mg/0.5ml HHN SCH ×3 (00:49→12:17)
[2019-02-25 04:00] VITALS: BP 122/76
[2019-02-25 06:35] LABS: BASOPHILS % (AUTO) 0.6 % (0.0-2.0); HEMATOCRIT 39.2 % (37.0-47.0); HEMOGLOBIN 13.4 G/DL (12.0-16.0); MEAN CORPUSCULAR VOLUME 105 FL (80-99); MONOCYTES % (AUTO) 11.3 % (1.0-10.0); NEUTROPHILS % (AUTO) 63.1 % (45.0-75.0); PLATELET COUNT 113 K/UL (150-450); RED BLOOD COUNT 3.74 M/UL (4.20-5.40); RED CELL DISTRIBUTION WIDTH 12.6 % (11.6-14.8); WHITE BLOOD COUNT 6.6 K/UL (4.8-10.8)
[2019-02-25 06:46] LABS: ALANINE AMINOTRANSFERASE 26 U/L (12-78); ALBUMIN/GLOBULIN RATIO 0.7 (1.0-2.7); ALKALINE PHOSPHATASE 83 U/L (46-116); ANION GAP 9 mmol/L (5-15); ASPARTATE AMINO TRANSFERASE 24 U/L (15-37); BILIRUBIN,TOTAL 0.5 MG/DL (0.2-1.0); BLOOD UREA NITROGEN 19 mg/dL (7-18); CALCIUM 8.9 MG/DL (8.5-10.1); CARBON DIOXIDE 26 MMOL/L (21-32); CHLORIDE 95 MMOL/L (98-107); CREATININE 0.6 MG/DL (0.55-1.30); POTASSIUM 4.1 MMOL/L (3.5-5.1); SODIUM 130 MMOL/L (136-145)
--- NOTE | 2019-02-25 07:40 | NUR ---
NURSE NOTES: Received report from CECILIO Dunn. Patient A&Ox4. On room air, no signs of distress or labored breathing. PICC line dry, intact, and saline locked. Bed in lowest position with call light in reach. Will continue with plan of care.
[2019-02-25 08:00] VITALS: BP 116/76
--- NOTE | 2019-02-25 08:02 | NUR ---
HAND-OFF: Report given to CECILIO Childress.
[2019-02-25] MEDS: Carvedilol 25mg Tab ORAL SCH (09:00)
[2019-02-25] MEDS ORDERED: Sertraline 50mg tab ORAL SCH (09:00)
[2019-02-25] MEDS ORDERED: Thiamine 100mg tab ORAL SCH (09:00)
[2019-02-25] MEDS ORDERED: cefTRIAXone 1 GM in D5W 55 ML IVPB SCH (09:00)
[2019-02-25] MEDS: Solu-MEDROL 40mg Inj IVP SCH (09:30)
[2019-02-25] MEDS: Phospha 250 Neutral tab ORAL SCH (09:30)
[2019-02-25] MEDS: Docusate 100mg cap ORAL SCH ×2 (09:32→12:57)
[2019-02-25] MEDS: Doxycycline Monohydrate 100mg ORAL SCH (09:32)
[2019-02-25 12:00] VITALS: BP 158/82
--- NOTE | 2019-02-25 12:14 | NUR ---
CASE MANAGEMENT:REVIEW SI;UTI. HYPOKALEMIA. ELECTROLYTE IMBALANCE. 98.1 111 20 144/98 95% ON RA NA 130 CL 95 BUN 19 MAG 1.4 ALB 3.0 IS;OV ROCEPHIN Q24 HRS DOXYCYCLINE PO Q12 HRS IV SOLU MEDROL Q12 H RS K CL PO BID MAG SULFATE IV TO MED SURG ON 02/24/2019 MED SURG STATUS DCP; TO HOME
--- NOTE | 2019-02-25 14:47 | Hematology/Onc Progress Note ---
Assessment/Plan Assessment/Plan Assessment and Recs: # Thrombocytopenia is likely related to underlying hepatitis, will obtain hepatitis panel --> hiv negative, hep c++ --> us of the abdomen shows cirrhosis and varices --> transfuse as needed --> outpatient hepatitis management as required --> plt trend: 103-->134 # Leukocytosis r/o infection --> trend wbc as needed 11.5-->11-->9.4 --> on abx as needed --> continue on steriods --> abx: cetriaxone.doxycycline # Respiratory distress is likely 2/2 copd exacerbation --> breahting treatments on prn basis --> bipap on prn basis # Hepatitis C, chronic --> afp ordered # Hypokalemia --> replete K as needed --> renal eval prn # UTI (urinary tract infection) --> s/p abx # Dvt ppx scds Appreciate consultation and dw Rn Subjective Constitutional: Denies: no symptoms, chills, fever, malaise, weakness, other HEENT: Denies: no symptoms, eye pain, blurred vision, tearing, double vision, ear pain, ear discharge, nose pain, nose congestion, throat pain, throat swelling, mouth pain, mouth swelling, other Cardiovascular: Denies: no symptoms, chest pain, edema, irregular heart rate, lightheadedness, palpitations, syncope, other Gastrointestinal/Abdominal: Denies: no symptoms, abdomen distended, abdominal pain, black stools, tarry stools, blood in stool, constipated, diarrhea, difficulty swallowing, nausea, poor appetite, poor fluid intake, rectal bleeding , vomiting, other Genitourinary: Denies: no symptoms, burning, discharge, frequency, flank pain, hematuria, incontinence, pain, urgency, other Neurologic/Psychiatric: Denies: no symptoms, anxiety, depressed, emotional problems, headache, numbness, paresthesia, pre-existing deficit, seizure, tingling, tremors, weakness, other Endocrine: Denies: no symptoms, excessive sweating, flushing, intolerance to cold, intolerance to heat, increased hunger, increased thirst, increased urine, unexplained weight gain, unexplained weight loss, other Hematologic/Lymphatic: Denies: no symptoms, anemia, easy bleeding, easy bruising, adenopathy, other Allergies: Coded Allergies: CODEINE (Verified Allergy, Unknown, 09/15/17) Subjective 02/24: awake, transferred to [facility], urine cx positive, hep c positive 02/25: no events, no bleeding, no chills or night sweats Objective Objective Current Medications Medications (Trade) Dose Ordered Sig/[place] Route PRN Reason Start Time Stop Time Status Last Admin Dose Admin Acetaminophen (Tylenol) 650 mg Q6H PRN ORAL Mild Pain/Temp > 100.5 02/24/19 10:50 03/24/19 10:49 02/25/19 02:37 Carvedilol (Coreg) 25 mg EVERY 12 HOURS ORAL 02/24/19 21:00 03/25/19 20:59 02/24/19 20:32 Ceftriaxone Sodium 1 gm/ Dextrose 55 ml @ 110 mls/hr Q24H IVPB 02/25/19 09:00 03/02/19 08:59 02/25/19 09:30 Chlorhexidine Gluconate (Heike-Hex 2%) 1 applic DAILY@2000 TOPIC 02/24/19 20:00 03/25/19 19:59 02/24/19 20:32 Docusate Sodium (Colace) 100 mg THREE TIMES A DAY ORAL 02/24/19 13:00 03/25/19 17:59 02/25/19 09:32 Doxycycline Monohydrate (Doxycycline Monohydrate) 100 mg EVERY 12 HOURS ORAL 02/24/19 21:00 03/01/19 20:59 02/25/19 09:32 Folic Acid (Folate) 5 mg DAILY ORAL 02/25/19 09:00 03/25/19 16:44 02/25/19 09:41 Gabapentin (Neurontin) 100 mg THREE TIMES A DAY ORAL 02/24/19 13:00 03/24/19 17:59 02/25/19 12:56 Ibuprofen (Motrin) 600 mg Q6H PRN ORAL For Pain 02/24/19 10:53 03/24/19 10:52 Levalbuterol HCl (Xopenex) 0.625 mg Q6HRT HHN 02/24/19 13:00 02/28/19 14:59 02/25/19 12:17 Methylprednisolone Sodium Succinate (Solu-MEDROL) 40 mg Q12HR IVP 02/24/19 21:00 03/24/19 21:59 02/25/19 09:30 Nicotine (Nicoderm) 1 patch Q24H TDERMAL 02/24/19 18:00 03/26/19 17:59 02/24/19 17:26 Ondansetron HCl (Zofran) 4 mg Q8H PRN IVP Nausea & Vomiting 02/24/19 10:54 03/24/19 10:53 Pantoprazole (Protonix) 40 mg BID ORAL 02/24/19 18:00 03/24/19 14:44 02/25/19 09:33 Potassium Chloride (K-Dur) 20 meq TWICE A DAY ORAL 02/24/19 18:00 03/24/19 17:59 02/25/19 09:33 Sertraline HCl (Zoloft) 25 mg DAILY ORAL 02/25/19 09:00 03/25/19 08:59 02/25/19 09:30 Thiamine HCl (Vitamin B1) 100 mg DAILY ORAL 02/25/19 09:00 03/25/19 16:44 02/25/19 09:33 Zolpidem Tartrate (Ambien) 5 mg HSPRN PRN ORAL Insomnia 02/24/19 20:00 03/01/19 19:59 02/24/19 20:34 Last 24 Hour Vital Signs Date Time Temp Pulse Resp B/P (MAP) Pulse Ox O2 Delivery O2 Flow Rate FiO2 02/25/19 12:17 91 22 98 Room Air 21 87 20 97 02/25/19 12:00 98.8 98 19 158/82 (107) 97 02/25/19 09:00 111 116/76 02/25/19 08:44 98 Room Air 21 02/25/19 08:35 92 22 100 Room Air 21 88 20 97 02/25/19 08:00 99.5 111 18 116/76 (89) 95 02/25/19 04:00 98.2 85 18 122/76 (91) 99 02/25/19 00:49 95 19 100 Room Air 21 94 18 98 02/25/19 00:00 98.1 88 18 128/93 (105) 97 02/24/19 21:00 Room Air 02/24/19 20:32 79 144/98 02/24/19 20:00 98.2 79 18 144/98 (113) 95 02/24/19 19:18 100 22 100 Room Air 21 99 20 86 02/24/19 19:18 98 Room Air 21 02/24/19 16:00 98.0 80 19 152/103 (119) 96 02/24/19 12:00 98.9 76 20 120/67 (84) 98 02/24/19 09:11 82 158/95 02/24/19 08:41 82 19 100 Room Air 21 78 17 99 02/24/19 08:00 97.9 87 21 158/95 (116) 97 02/24/19 08:00 Room Air 02/24/19 07:52 98 02/24/19 04:00 Room Air 02/24/19 04:00 97.5 76 22 148/92 (110) 96 02/24/19 04:00 75 02/24/19 00:00 78 02/24/19 00:00 98.3 73 24 149/86 (107) 96 02/24/19 00:00 Room Air 02/23/19 21:39 87 158/89 02/23/19 20:40 95 Nasal Cannula 2.0 28 02/23/19 20:00 Room Air 02/23/19 20:00 98.8 88 24 158/89 (112) 97 02/23/19 20:00 87 02/23/19 17:33 98.6 02/23/19 16:25 104 18 98 Room Air 21 96 20 95 02/23/19 16:00 93 02/23/19 16:00 2.0 02/23/19 16:00 Nasal Cannula 2.0 02/23/19 16:00 98.8 102 20 159/92 (114) 96 Intake and Output 02/24/19 02/25/19 19:00 07:00 Intake Total 560 ml 300 ml Balance 560 ml 300 ml Intake Oral 360 ml 300 ml IV Total 200 ml # Voids 2 3 Labs Test 02/22/19 16:00 02/23/19 03:40 02/23/19 23:00 02/24/19 04:15 Prothrombin Time 10.0 SEC (9.30-11.50) Prothromb Time International Ratio 0.9 (0.9-1.1) Iron Level 29 ug/dL (50-175) Total Iron Binding Capacity 241 ug/dL (250-450) Percent Iron Saturation 12 % (15-50) Unsaturated Iron Binding 212 ug/dL (112-346) Ferritin 279 NG/ML (8-388) Carcinoembryonic Antigen 5.4 ng/mL (0.0-4.7) Hepatitis A IgM Antibody Negative (Negative) Hepatitis B Surface Antigen Negative (Negative) Hepatitis B Core IgM Antibody Negative (Negative) Hepatitis C Antibody >11.0 s/co ratio White Blood Count 11.0 K/UL (4.8-10.8) 9.4 K/UL (4.8-10.8) Red Blood Count 3.35 M/UL (4.20-5.40) 3.49 M/UL (4.20-5.40) Hemoglobin 12.2 G/DL (12.0-16.0) 12.7 G/DL (12.0-16.0) Hematocrit 36.1 % (37.0-47.0) 36.9 % (37.0-47.0) Mean Corpuscular Volume 108 FL (80-99) 106 FL (80-99) Mean Corpuscular Hemoglobin 36.4 PG (27.0-31.0) 36.4 PG (27.0-31.0) Mean Corpuscular Hemoglobin Concent 33.7 G/DL (32.0-36.0) 34.4 G/DL (32.0-36.0) Red Cell Distribution Width 13.6 % (11.6-14.8) 13.1 % (11.6-14.8) Platelet Count 84 K/UL (150-450) 103 K/UL (150-450) Mean Platelet Volume 7.2 FL (6.5-10.1) 7.7 FL (6.5-10.1) Neutrophils (%) (Auto) % (45.0-75.0) % (45.0-75.0) Lymphocytes (%) (Auto) % (20.0-45.0) % (20.0-45.0) Monocytes (%) (Auto) % (1.0-10.0) % (1.0-10.0) Eosinophils (%) (Auto) % (0.0-3.0) % (0.0-3.0) Basophils (%) (Auto) % (0.0-2.0) % (0.0-2.0) Differential Total Cells Counted 100 Neutrophils % (Manual) 94 % (45-75) Lymphocytes % (Manual) 2 % (20-45) Monocytes % (Manual) 4 % (1-10) Eosinophils % (Manual) 0 % (0-3) Basophils % (Manual) 0 % (0-2) Band Neutrophils 0 % (0-8) Platelet Estimate Adequate Platelet Morphology Normal Anisocytosis 1+ Macrocytosis 1+ Sodium Level 134 MMOL/L (136-145) 130 MMOL/L (136-145) Potassium Level 3.9 MMOL/L (3.5-5.1) 4.7 MMOL/L (3.5-5.1) Chloride Level 97 MMOL/L (98-107) 94 MMOL/L (98-107) Carbon Dioxide Level 21 MMOL/L (21-32) 26 MMOL/L (21-32) Anion Gap 16 mmol/L (5-15) 10 mmol/L (5-15) Blood Urea Nitrogen 19 mg/dL (7-18) 19 mg/dL (7-18) Creatinine 0.5 MG/DL (0.55-1.30) 0.5 MG/DL (0.55-1.30) Estimat Glomerular Filtration Rate > 60 mL/min (>60) > 60 mL/min (>60) Glucose Level 139 MG/DL (74-106) 128 MG/DL (74-106) Calcium Level 9.0 MG/DL (8.5-10.1) 8.7 MG/DL (8.5-10.1) Phosphorus Level 2.5 MG/DL (2.5-4.9) 2.0 MG/DL (2.5-4.9) Magnesium Level 1.4 MG/DL (1.8-2.4) 1.8 MG/DL (1.8-2.4) Total Bilirubin 0.6 MG/DL (0.2-1.0) 0.5 MG/DL (0.2-1.0) Gamma Glutamyl Transpeptidase 41 U/L (5-85) Aspartate Amino Transf (AST/SGOT) 38 U/L (15-37) 29 U/L (15-37) Alanine Aminotransferase (ALT/SGPT) 27 U/L (12-78) 26 U/L (12-78) Alkaline Phosphatase 99 U/L (46-116) 98 U/L (46-116) C-Reactive Protein, Quantitative 49.2 mg/dL (0.00-0.90) 37.6 mg/dL (0.00-0.90) Pro-B-Type Natriuretic Peptide 2018 pg/mL (0-125) 3402 pg/mL (0-125) Total Protein 7.7 G/DL (6.4-8.2) 7.4 G/DL (6.4-8.2) Albumin 2.9 G/DL (3.4-5.0) 2.9 G/DL (3.4-5.0) Globulin 4.8 g/dL 4.5 g/dL Albumin/Globulin Ratio 0.6 (1.0-2.7) 0.6 (1.0-2.7) Vitamin B12 Level 467 PG/ML (193-986) Folate 4.9 NG/ML (8.6-58.9) Thyroid Stimulating Hormone (TSH) 0.502 uiU/mL (0.358-3.740) Urine Opiates Screen Negative (NEGATIVE) Urine Barbiturates Screen Negative (NEGATIVE) Phencyclidine (PCP) Screen Negative (NEGATIVE) Urine Amphetamines Screen Negative (NEGATIVE) Urine Benzodiazepines Screen Negative (NEGATIVE) Urine Cocaine Screen Negative (NEGATIVE) Urine Marijuana (THC) Screen Negative (NEGATIVE) Uric Acid 4.9 MG/DL (2.6-7.2) Test 02/24/19 23:11 02/25/19 06:15 Urine Osmolality 305 mOsm/kg (429-449) Urine Random Sodium 57 mmol/L (20-110) White Blood Count 6.6 K/UL (4.8-10.8) Red Blood Count 3.74 M/UL (4.20-5.40) Hemoglobin 13.4 G/DL (12.0-16.0) Hematocrit 39.2 % (37.0-47.0) Mean Corpuscular Volume 105 FL (80-99) Mean Corpuscular Hemoglobin 35.7 PG (27.0-31.0) Mean Corpuscular Hemoglobin Concent 34.1 G/DL (32.0-36.0) Red Cell Distribution Width 12.6 % (11.6-14.8) Platelet Count 113 K/UL (150-450) Mean Platelet Volume 6.8 FL (6.5-10.1) Neutrophils (%) (Auto) 63.1 % (45.0-75.0) Lymphocytes (%) (Auto) 25.0 % (20.0-45.0) Monocytes (%) (Auto) 11.3 % (1.0-10.0) Eosinophils (%) (Auto) 0.0 % (0.0-3.0) Basophils (%) (Auto) 0.6 % (0.0-2.0) Sodium Level 130 MMOL/L (136-145) Potassium Level 4.1 MMOL/L (3.5-5.1) Chloride Level 95 MMOL/L (98-107) Carbon Dioxide Level 26 MMOL/L (21-32) Anion Gap 9 mmol/L (5-15) Blood Urea Nitrogen 19 mg/dL (7-18) Creatinine 0.6 MG/DL (0.55-1.30) Estimat Glomerular Filtration Rate > 60 mL/min (>60) Glucose Level 134 MG/DL (74-106) Osmolality 276 mOsm/kg (297-317) Uric Acid 4.5 MG/DL (2.6-7.2) Calcium Level 8.9 MG/DL (8.5-10.1) Phosphorus Level 3.0 MG/DL (2.5-4.9) Magnesium Level 1.4 MG/DL (1.8-2.4) Total Bilirubin 0.5 MG/DL (0.2-1.0) Aspartate Amino Transf (AST/SGOT) 24 U/L (15-37) Alanine Aminotransferase (ALT/SGPT) 26 U/L (12-78) Alkaline Phosphatase 83 U/L (46-116) Total Protein 7.4 G/DL (6.4-8.2) Albumin 3.0 G/DL (3.4-5.0) Globulin 4.4 g/dL Albumin/Globulin Ratio 0.7 (1.0-2.7) Height (Feet): 5 Height (Inches): 8.00 Weight (Pounds): 142 Objective Physical Exam Gen: alert, severe distress HEENT: normal ENT inspection, hearing grossly sarina Resp: respiratory distress, decreased breath sounds, accessory muscle use ++ Cardiovascular: RRR, no mgr GI: normal inspection, normal bowel sounds, non tender, soft, no guarding, no hernia Genitourinary: no CVA tenderness Musculoskeletal: normal inspection, back normal, normal range of motion Dimitris Sarabia MD Feb 25, 2019 14:47
--- NOTE | 2019-02-25 14:56 | Nephrology Progress Note ---
Assessment/Plan Problem List: (1) UTI (urinary tract infection) (2) Anemia (3) Electrolyte imbalance Assessment HTN Respiratory distress Hypokalemia Low mag Low folate UTI (urinary tract infection) Plan watch serum Na K and Mag Phos supplement as needed antibiotics adjust BP meds urine tox screen negative per orders Subjective ROS Limited/Unobtainable: No Constitutional: Reports: malaise Objective Objective Last 24 Hour Vital Signs Date Time Temp Pulse Resp B/P (MAP) Pulse Ox O2 Delivery O2 Flow Rate FiO2 02/25/19 12:17 91 22 98 Room Air 21 87 20 97 02/25/19 12:00 98.8 98 19 158/82 (107) 97 02/25/19 09:00 111 116/76 02/25/19 08:44 98 Room Air 21 02/25/19 08:35 92 22 100 Room Air 21 88 20 97 02/25/19 08:00 99.5 111 18 116/76 (89) 95 02/25/19 04:00 98.2 85 18 122/76 (91) 99 02/25/19 00:49 95 19 100 Room Air 21 94 18 98 02/25/19 00:00 98.1 88 18 128/93 (105) 97 02/24/19 21:00 Room Air 02/24/19 20:32 79 144/98 02/24/19 20:00 98.2 79 18 144/98 (113) 95 02/24/19 19:18 100 22 100 Room Air 21 99 20 86 02/24/19 19:18 98 Room Air 21 02/24/19 16:00 98.0 80 19 152/103 (119) 96 Intake and Output 02/24/19 02/25/19 19:00 07:00 Intake Total 560 ml 300 ml Balance 560 ml 300 ml Intake Oral 360 ml 300 ml IV Total 200 ml # Voids 2 3 Laboratory Tests 02/24/19 23:11: Urine Osmolality 305L, Urine Random Sodium 57 02/25/19 06:15: White Blood Count 6.6, Red Blood Count 3.74L, Hemoglobin 13.4, Hematocrit 39.2, Mean Corpuscular Volume 105H, Mean Corpuscular Hemoglobin 35.7H, Mean Corpuscular Hemoglobin Concent 34.1, Red Cell Distribution Width 12.6, Platelet Count 113L, Mean Platelet Volume 6.8, Neutrophils (%) (Auto) 63.1, Lymphocytes ( %) (Auto) 25.0, Monocytes (%) (Auto) 11.3H, Eosinophils (%) (Auto) 0.0, Basophils (%) (Auto) 0.6, Sodium Level 130L, Potassium Level 4.1, Chloride Level 95L, Carbon Dioxide Level 26, Anion Gap 9, Blood Urea Nitrogen 19H, Creatinine 0.6, Estimat Glomerular Filtration Rate > 60, Glucose Level 134H, Osmolality 276L, Uric Acid 4.5, Calcium Level 8.9, Phosphorus Level 3.0, Magnesium Level 1.4L, Total Bilirubin 0.5, Aspartate Amino Transf (AST/SGOT) 24 , Alanine Aminotransferase (ALT/SGPT) 26, Alkaline Phosphatase 83, Total Protein 7.4, Albumin 3.0L, Globulin 4.4, Albumin/Globulin Ratio 0.7L Height (Feet): 5 Height (Inches): 8.00 Weight (Pounds): 142 General Appearance: no apparent distress Cardiovascular: tachycardia Respiratory/Chest: decreased breath sounds Abdomen: soft, distended Objective no change Loco Menjivar MD Feb 25, 2019 14:56
--- NOTE | 2019-02-25 15:24 | Infectious Diseases Prog Note ---
Assessment/Plan Assessment/Plan IMPRESSION: COPD exacerbation. Bacteriuria, UTI leukocytosis, hepatitis C, hypokalemia, thrombocytopenia, alcoholic fatty liver nicotine dependence. RECOMMENDATION: We will continue with ceftriaxone and doxycycline Subjective ROS Limited/Unobtainable: No Constitutional: Reports: no symptoms Respiratory: Reports: shortness of breath, productive cough Cardiovascular: Reports: no symptoms Gastrointestinal/Abdominal: Reports: no symptoms Allergies: Coded Allergies: CODEINE (Verified Allergy, Unknown, 09/15/17) Objective Vital Signs Last 24 Hour Vital Signs Date Time Temp Pulse Resp B/P (MAP) Pulse Ox O2 Delivery O2 Flow Rate FiO2 02/25/19 12:17 91 22 98 Room Air 21 87 20 97 02/25/19 12:00 98.8 98 19 158/82 (107) 97 02/25/19 09:00 111 116/76 02/25/19 08:44 98 Room Air 21 02/25/19 08:35 92 22 100 Room Air 21 88 20 97 02/25/19 08:00 99.5 111 18 116/76 (89) 95 02/25/19 04:00 98.2 85 18 122/76 (91) 99 02/25/19 00:49 95 19 100 Room Air 21 94 18 98 02/25/19 00:00 98.1 88 18 128/93 (105) 97 02/24/19 21:00 Room Air 02/24/19 20:32 79 144/98 02/24/19 20:00 98.2 79 18 144/98 (113) 95 02/24/19 19:18 100 22 100 Room Air 21 99 20 86 02/24/19 19:18 98 Room Air 21 02/24/19 16:00 98.0 80 19 152/103 (119) 96 Height (Feet): 5 Height (Inches): 8.00 Weight (Pounds): 142 General Appearance: no acute distress HEENT: mucous membranes moist Respiratory/Chest: expiratory wheezing, other - prolonged expiration Cardiovascular: normal rate Abdomen: soft, non tender Extremities: no edema Neurologic/Psychiatric: alert, responsive Laboratory Tests Test 02/24/19 23:11 02/25/19 06:15 Urine Osmolality 305 mOsm/kg (429-449) L Urine Random Sodium 57 mmol/L (20-110) White Blood Count 6.6 K/UL (4.8-10.8) Red Blood Count 3.74 M/UL (4.20-5.40) L Hemoglobin 13.4 G/DL (12.0-16.0) Hematocrit 39.2 % (37.0-47.0) Mean Corpuscular Volume 105 FL (80-99) H Mean Corpuscular Hemoglobin 35.7 PG (27.0-31.0) H Mean Corpuscular Hemoglobin Concent 34.1 G/DL (32.0-36.0) Red Cell Distribution Width 12.6 % (11.6-14.8) Platelet Count 113 K/UL (150-450) L Mean Platelet Volume 6.8 FL (6.5-10.1) Neutrophils (%) (Auto) 63.1 % (45.0-75.0) Lymphocytes (%) (Auto) 25.0 % (20.0-45.0) Monocytes (%) (Auto) 11.3 % (1.0-10.0) H Eosinophils (%) (Auto) 0.0 % (0.0-3.0) Basophils (%) (Auto) 0.6 % (0.0-2.0) Sodium Level 130 MMOL/L (136-145) L Potassium Level 4.1 MMOL/L (3.5-5.1) Chloride Level 95 MMOL/L (98-107) L Carbon Dioxide Level 26 MMOL/L (21-32) Anion Gap 9 mmol/L (5-15) Blood Urea Nitrogen 19 mg/dL (7-18) H Creatinine 0.6 MG/DL (0.55-1.30) Estimat Glomerular Filtration Rate > 60 mL/min (>60) Glucose Level 134 MG/DL (74-106) H Osmolality 276 mOsm/kg (297-317) L Uric Acid 4.5 MG/DL (2.6-7.2) Calcium Level 8.9 MG/DL (8.5-10.1) Phosphorus Level 3.0 MG/DL (2.5-4.9) Magnesium Level 1.4 MG/DL (1.8-2.4) L Total Bilirubin 0.5 MG/DL (0.2-1.0) Aspartate Amino Transf (AST/SGOT) 24 U/L (15-37) Alanine Aminotransferase (ALT/SGPT) 26 U/L (12-78) Alkaline Phosphatase 83 U/L (46-116) Total Protein 7.4 G/DL (6.4-8.2) Albumin 3.0 G/DL (3.4-5.0) L Globulin 4.4 g/dL Albumin/Globulin Ratio 0.7 (1.0-2.7) L Current Medications Medications (Trade) Dose Ordered Sig/[place] Route PRN Reason Start Time Stop Time Status Last Admin Dose Admin Acetaminophen (Tylenol) 650 mg Q6H PRN ORAL Mild Pain/Temp > 100.5 02/24/19 10:50 03/24/19 10:49 02/25/19 02:37 Carvedilol (Coreg) 25 mg EVERY 12 HOURS ORAL 02/24/19 21:00 03/25/19 20:59 02/24/19 20:32 Ceftriaxone Sodium 1 gm/ Dextrose 55 ml @ 110 mls/hr Q24H IVPB 02/25/19 09:00 03/02/19 08:59 02/25/19 09:30 Chlorhexidine Gluconate (Hieke-Hex 2%) 1 applic DAILY@2000 TOPIC 02/24/19 20:00 03/25/19 19:59 02/24/19 20:32 Docusate Sodium (Colace) 100 mg THREE TIMES A DAY ORAL 02/24/19 13:00 03/25/19 17:59 02/25/19 09:32 Doxycycline Monohydrate (Doxycycline Monohydrate) 100 mg EVERY 12 HOURS ORAL 02/24/19 21:00 03/01/19 20:59 02/25/19 09:32 Folic Acid (Folate) 5 mg DAILY ORAL 02/25/19 09:00 03/25/19 16:44 02/25/19 09:41 Gabapentin (Neurontin) 100 mg THREE TIMES A DAY ORAL 02/24/19 13:00 03/24/19 17:59 02/25/19 12:56 Ibuprofen (Motrin) 600 mg Q6H PRN ORAL For Pain 02/24/19 10:53 03/24/19 10:52 Levalbuterol HCl (Xopenex) 0.625 mg Q6HRT HHN 02/24/19 13:00 02/28/19 14:59 02/25/19 12:17 Methylprednisolone Sodium Succinate (Solu-MEDROL) 40 mg Q12HR IVP 02/24/19 21:00 03/24/19 21:59 02/25/19 09:30 Nicotine (Nicoderm) 1 patch Q24H TDERMAL 02/24/19 18:00 03/26/19 17:59 02/24/19 17:26 Ondansetron HCl (Zofran) 4 mg Q8H PRN IVP Nausea & Vomiting 02/24/19 10:54 03/24/19 10:53 Pantoprazole (Protonix) 40 mg BID ORAL 02/24/19 18:00 03/24/19 14:44 02/25/19 09:33 Potassium Chloride (K-Dur) 20 meq TWICE A DAY ORAL 02/24/19 18:00 03/24/19 17:59 02/25/19 09:33 Sertraline HCl (Zoloft) 25 mg DAILY ORAL 02/25/19 09:00 03/25/19 08:59 02/25/19 09:30 Thiamine HCl (Vitamin B1) 100 mg DAILY ORAL 02/25/19 09:00 03/25/19 16:44 02/25/19 09:33 Zolpidem Tartrate (Ambien) 5 mg HSPRN PRN ORAL Insomnia 02/24/19 20:00 03/01/19 19:59 02/24/19 20:34 Gabe Everett MD Feb 25, 2019 15:24
[2019-02-25 16:00] VITALS: BP 134/97
--- NOTE | 2019-02-25 16:56 | NUR ---
*-* INSURANCE *-* ALL CLINICALS AND REVIEWS HAVE BEEN FAXED TO: [facility] or Ref# yet # [phone] fax#[phone]
[2019-02-25] MEDS ORDERED: NS 275ml ONE (16:59)
[2019-02-25] MEDS ORDERED: Tubing IV Secondary IV ONE (16:59)
--- NOTE | 2019-02-27 10:52 | Discharge Summary ---
Discharge Summary Discharge Summary _ DATE OF ADMISSION: 02/22/2019 DATE OF DISCHARGE: 02/25/2019 CONSULTANTS: Dr. Gabe Mansfield BRIEF HOSPITAL COURSE: Patient is a 54-year-old female who presented to the emergency room department due to acute onset of respiratory distress. She has underlying history of COPD , hepatitis B, and substance abuse. Patient developed flulike symptoms for the last few days and developed acute onset of cough, congestion, and shortness of breath. EMS was called and patient was taken to ED for further evaluation. Upon evaluation at ED, patient was in respiratory distress. BiPAP was initiated. Blood count showed elevated WBC 11.5. Hemoglobin and hematocrit were stable. Platelet count 74. Potassium 3.4. proBNP 1247. Troponin negative. Urinalysis with evidence of infection. Chest x-ray did not show any acute disease. He was given albuterol and Atrovent treatment x3. He was started on IV Solu-Medrol. He continued to be short of breath. He was given IV magnesium. He was then admitted for acute respiratory distress due to COPD exacerbation. He was continued on nebulizer treatment. Given pulmonary support. Continued on IV Solu-Medrol. BiPAP PRN. He was given SCDs for DVT prophylaxis. He was started empirically on ceftriaxone and p.o. doxycycline. He was given potassium and magnesium supplement. Lower extremity duplex was negative for DVT. Hematology is consulted for evaluation of thrombocytopenia. Thrombocytopenia likely related to underlying hepatitis. Hepatitis panel showed positive hep C. HIV was negative. Abdominal ultrasound showed liver with increased echogenicity consistent with diffuse hepatocellular disease. Spleen was unremarkable. Alpha-fetoprotein and CEA normal. Blood culture did not isolate any growth. Urine culture showed growth of Klebsiella pneumoniae. Full treatment was not carried out as patient left against medical advise. FINAL DIAGNOSES: Acute respiratory distress due to acute COPD exacerbation, required BiPAP support, resolved E. coli UTI Chronic hepatitis C Hypokalemia Low magnesium Thrombocytopenia Alcoholic fatty liver Nicotine dependence DISPOSITION: Patient left against medical advise. I have been assigned to complete a discharge summary on this account, I was not involved with the patient's management.--BRENDON Gonzalez Jacqueline Robles NP Feb 27, 2019 10:52
== END 2019-02-25 17:00 | disposition left against medical advice (07) | DRG 191 ==
LOC: EDBD 09:37 → EMR 10:15 → EDBEDREQ 10:51 → 2W 11:40 → EDBEDREQ 12:43 → EDBEDREQSVC 13:04 → 4E 02-24 10:34
PROC: 5A09357 Assistance with Respiratory Ventilation, Less than 24 Consecutive Hours, Continuous Positive Airway Pressure (ICD-10-PCS; principal; 2019-02-22)
PROC: 02HV33Z Insertion of Infusion Device into Superior Vena Cava, Percutaneous Approach (ICD-10-PCS; 2019-02-23)
DX: J44.1 Chronic obstructive pulmonary disease with (acute) exacerbation (principal); N39.0 Urinary tract infection, site not specified; R06.03 Acute respiratory distress; E87.6 Hypokalemia; J40 Bronchitis, not specified as acute or chronic; G62.9 Polyneuropathy, unspecified; Z87.891 Personal history of nicotine dependence; Z88.6 Allergy status to analgesic agent; K73.8 Other chronic hepatitis, not elsewhere classified; B19.20 Unspecified viral hepatitis C without hepatic coma; E83.42 Hypomagnesemia; D69.6 Thrombocytopenia, unspecified; K70.0 Alcoholic fatty liver; R00.0 Tachycardia, unspecified; F17.200 Nicotine dependence, unspecified, uncomplicated; B96.20 Unspecified Escherichia coli [E. coli] as the cause of diseases classified elsewhere
CPT/HCPCS: 36415; 36569; 36600; 71045; 76700; 76937; 80053; 80307; 81003; 82105; 82378; 82607; 82728; 82746; 82803; 82962; 82977; 83540; 83550; 83735; 83880; 83930; 83935; 84100; 84300; 84443; 84484; 84550; 85007; 85025; 85060; 85610; 86140; 86703; 86705; 86709; 86710; 86803; 87040; 87086; 87181; 87340; 93005; 93970; 94640; 96365; 96375; 99291; C9399; J7620; J8499